=== PATIENT | male | born 1980 | race Caucasian/White ===

== ENCOUNTER 2020-11-15 11:16 | Emergency (ER) | payer OTHER, SELFPAY ==
--- NOTE | ~2020-11-15 | CT_ITS ---
EXAMINATION: CT brain wo con DATE: 11/15/2020 12:23 INDICATION: Head injury. TECHNIQUE: Computed tomography (CT) of the head was performed without intravenous contrast. The mA wa s adjusted according to patient size. Iterative reconstruction technique was employed. The dose-lengt h product was 605.33 mGy-cm. COMPARISON: None FINDINGS: There is no intracranial hemorrhage, acute infarction, or abnormal intracranial mass lesion . The ventricles are normal in size. There is mild mucosal thickening in the ethmoid sinuses. The orb its are normal. The mastoid air cells are normal. IMPRESSION: 1. Normal brain. Reviewed, dictated and finalized at location A. IMPRESSION: 1. Normal brain.
[2020-11-15 12:02] VITALS: BP 146/96; PULSE 99; RESP 18; TEMP 36.3; O2SAT 96
[2020-11-15 14:05] VITALS: BP 146/105; PULSE 101; RESP 18
--- NOTE | 2020-11-15 14:14 | PC.NURSE ---
Pt states he has been extremely dizzy and unable to walk around his house without falling into the [place]
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
[2020-11-15] MEDS: KETOROLAC 30 MG/ML VIAL (*BKC) IV PUSH (15:04)
[2020-11-15] MEDS: diphenhydrAMINE HCl INJ 50 MG/ML VIAL 25 MG IV PUSH (15:04)
[2020-11-15] MEDS: METOCLOPRAMIDE HCL INJ 10 MG/2 ML VIAL IV PUSH (15:04)
[2020-11-15] MEDS: SODIUM CHLORIDE 0.9% IV 1,000 ML 999 ML IV CONT (15:04)
[2020-11-15 15:05] VITALS: BP 121/85; PULSE 86; RESP 16; O2SAT 98
[2020-11-15 16:48] VITALS: BP 109/66; PULSE 87; RESP 16; O2SAT 98
[2020-11-15] MEDS: ONDANSETRON INJ 4 MG/2 ML VIAL IV PUSH (16:50)
[2020-11-15 18:01] VITALS: BP 102/64; PULSE 76; RESP 16; TEMP 36.7; O2SAT 96
== END 2020-11-15 18:38 | disposition home or self-care (01) ==
PROVIDERS: Emergency Provider Emergency Medicine; PCP Internal Medicine Gastroenterology
DX: S06.0X0A Concussion without loss of consciousness, initial encounter (principal); Y00.XXXA Assault by blunt object, initial encounter
CPT/HCPCS: 70450; 96365; 96366; 96375; 99284; J0131; J1100; J1200; J1885; J2405; J2765; J7030

== ENCOUNTER 2023-03-03 16:13 | Emergency (ER) | payer OTHER, SELFPAY ==
--- NOTE | ~2023-03-03 | CT_ITS ---
EXAMINATION: CT abdomen pelvis w con DATE: 03/03/2023 22:44 INDICATION: Abdominal pain and bloating, constipation for 4 days TECHNIQUE: Computed tomography (CT) of the abdomen and pelvis was performed with 100 CC Omnipaque 350 intravenous contrast. Automated exposure control and iterative reconstruction technique were employe d. Exam dose: 1203.19 mGy-cm total exam DLP. COMPARISON: 07/12/2004 CT abdomen pelvis FINDINGS: Minimal atelectasis at the base of the lingula and left dependent lower lobe. Normal heart size. No pericardial or pleural effusion. Mild medial segment left hepatic focal fatty change near the fissure for the ligamentum teres. Small focal area of diminished attenuation of the posterior upper right hepatic lobe, possibly focal fatty change or small cyst or hemangioma. The liver is otherwise unremarkable. Contracted unremarkable gallbladder. No bile duct or pancreatic duct dilatation. No pancreatic mass l esion or calcification. Normal splenic size. Small splenule. Normal morphology of the adrenal glands. Small probable right renal cysts, the largest up to approximately 5.5 mm. No left renal mass lesion. No urinary tract calculus or hydroureteronephrosis. The urinary bladder is unremarkable. Small fat-containing right inguinal hernia. Normal caliber of the abdominal aorta. No intraperitoneal or retroperitoneal or pelvic mass lesion or adenopathy or ascites. Normal appendix. No bowel obstruction, bowel wall thickening, pneumatosis or intraperitoneal free air . Moderate degenerative disc disease at L4-5 and L5-S1. Degenerative spurring of the lower thoracic spi ne. No suspicious osteolytic or osteoblastic lesions. IMPRESSION: Indeterminate approximately 1 cm hypodense lesion in the posterior upper right hepatic l obe; consider hepatic MRI for further evaluation Small right renal cysts Normal appendix Reviewed, dictated and finalized at [facility]. Reviewed, dictated and finalized at location A. IMPRESSION: Indeterminate approximately 1 cm hypodense lesion in the posterior upper right hepatic lobe; consider hepatic MRI for further evaluation Small right renal cysts Normal appendix
--- NOTE | ~2023-03-03 | XR_ITS ---
EXAMINATION: XR chest 2V Exam Date/Time: 03/03/2023 16:35 CDT HISTORY: chest pain RADIATING TO LEFT ARM Comparison: 03/07/2006. RESULT: Lines, tubes, and devices: None. Lungs and pleura: Minimal linear opacities in the left lung base. Cardiomediastinal silhouette: Stable. Other: No acute osseous or upper abdominal finding. IMPRESSION: Minimal left basilar scar/atelectasis. Reviewed, dictated and finalized at location K.
--- NOTE | 2023-03-03 16:14 | ECG_ITS ---
Measurements Intervals [place] Rate: 97 P: 31 W[place]: 156 QRS: 2 QRSD: 95 T: 8 QT: 330 QTc: 421 Interpretive Statements SINUS RHYTHM CONSIDER INFERIOR INFARCT, AGE INDETERMINATE BASELINE ARTIFACT- II, III, AVL, AVF, V3 ABNORMAL ECG NO PREVIOUS ECG AVAILABLE FOR COMPARISON Electronically Signed On 03-03-2023 17:36:15 CDT by Steven Loya D.O.
[2023-03-03 16:37] LABS: Basophils Percent Auto 0.2 % (0.2-1.2); Eosinophils Absolute Auto 0.1 K/mm3 (0-0.3); Eosinophils Percent Auto 1.3 % (0-4.4); Hematocrit 41.6 % (42.0-52.0); Hemoglobin 14.4 g/dL (14.0-18.0); Immature Granulocyte Absolute 0.05 K/mm3 (0.00-0.031); Immature Granulocyte Percent A 0.6 % (0-0.5); Lymphocytes Absolute Auto 4.16 K/mm3 (0.9-3.2); Lymphocytes Percent Auto 48.1 % (18.3-44.2); Mean Corpuscular HGB Conc 34.6 g/dl (32-36); Mean Corpuscular Volume 89.5 fl (80-100); Mean Platelet Volume 10.8 fl (7.4-10.4); Monocytes Absolute Auto 0.4 K/mm3 (0.1-0.6); Monocytes Percent Auto 4.5 % (2.6-8.5); Neutrophils Absolute Auto 3.9 K/mm3 (1.3-6.7); Neutrophils Percent Auto 45.3 % (45.5-73.1); Platelet Count Result 242 k/mm3 (150-375); Red Blood Count 4.65 M/mm3 (4.6-6.20); White Blood Count 8.6 K/mm3 (4.5-10.0)
[2023-03-03 16:43] VITALS: BP 107/86; PULSE 102; RESP 22; TEMP 36.8; O2SAT 98
[2023-03-03 16:46] LABS: Alanine Aminotransferase 34 U/L (6-50); Albumin Level 4.8 g/dL (3.5-5.1); Alkaline Phosphatase 52 U/L (38-126); Anion Gap 9 mmol/L (8-16); Aspartate Amino Transferase 48 U/L (17-59); Bilirubin,Total 0.6 mg/dL (0.2-1.3); Blood Urea Nitrogen 13 mg/dL (9-20); Calcium 9.3 mg/dL (8.4-10.2); Carbon Dioxide 28 mmol/L (22-30); Chloride 101 mmol/L (98-107); Estimated Glomerular Filt Rate > 60; Glucose 108 mg/dL (65-110); Lipase 158 U/L (23-300); Potassium 4.1 mmol/L (3.4-5.0); Sodium 138 mmol/L (137-145)
[2023-03-03 16:48] LABS: INR 0.9; Partial Thromboplastin Time 29.6 SECONDS (22.3-36.8); Prothrombin Time 12.2 Seconds (11.1-14.7)
[2023-03-03 16:58] LABS: Troponin I < 0.012 ng/mL (0.000-0.034)
[2023-03-03 21:28] VITALS: BP 136/87; PULSE 89; RESP 20; O2SAT 98
[2023-03-03 21:58] LABS: Troponin I < 0.012 ng/mL (0.000-0.034)
--- NOTE | 2023-03-03 22:12 | ED.GENADULT ---
HPI - General Adult General Chief complaint: Chest Pain Stated complaint: chest pain Time Seen by Provider: 03/03/23 21:30 Source: patient Mode of arrival: ambulatory Limitations: no limitations History of Present Illness HPI narrative: Patient is a 42 y/o male who presents to the ED with multiple complaints. Patient reports having left-sided chest pain for the last 2 days. He states he was recently diagnosed with pleurisy and this feels similar. He has not tried anything for the pain. He also reports having diffuse abdominal pain and bloating and notes he has not had a bowel movement in 4 days. He does have history of previous constipation. Denies history of bowel obstruction. He has tried several [id number] therapies without relief. Denies nausea, vomiting, shortness of breath, fevers, urinary symptoms. Patient also reports having increased stress recently. Related Data Allergies Allergy/AdvReac Type Severity Reaction Status Date / Time bee venom protein (honey bee) Allergy Unknown Unknown Verified 03/03/23 22:50 [bees] BEES Allergy Unknown Unknown Uncoded 03/03/23 22:50 Review of Systems Review of Systems: CONSTITUTIONAL: Denies fever, chills, or sweats. CARDIOVASCULAR: See HPI. RESPIRATORY: Denies dyspnea. GASTROINTESTINAL: See HPI. GENITOURINARY: Denies dysuria or hematuria. SKIN: Denies rash or itching. MUSCULOSKELETAL: Denies back pain, joint pain, or myalgia. All systems reviewed & are unremarkable except as noted in HPI and below PMFSH Past Medical History Medical History History of anxiety Social History Social History (Updated 11/15/20 @ 15:00 by Eden Diamond PA-C) Substance use: never Exam Narrative: GENERAL: Uncomfortable appearing, obese with BMI of 33.9, non-toxic, in no acute distress. HEAD: Normocephalic, atraumatic. NECK: Supple. No adenopathy, no masses. RESPIRATORY: Airway patent, respirations nonlabored. Clear to auscultation bilaterally, no rales, rhonchi, wheezing. CARDIOVASCULAR: Regular rate and rhythm without murmurs, rubs, or gallops. Radial pulses 2+ and equal bilaterally. ABDOMINAL: Abdomen protuberant, slightly distended, diffuse tenderness, no hepatosplenomegaly. Normoactive BS. MUSCULOSKELETAL: Moves all extremities. Strength/ROM intact without gross deformities. TTP over left sided anterior chest wall. SKIN: Warm, dry, normal color. No rashes. NEURO: A&O X3. Speech clear. Cranial nerves II-XII grossly intact. Steady gait. No ataxic movements. PSYCHIATRIC: Anxious, tearful. Normal interaction. Course Vital Signs Vital signs: Vital Signs Temperature 98.3 F 03/03/23 16:43 Pulse Rate 102 H 03/03/23 16:43 Respiratory Rate 22 H 03/03/23 16:43 Blood Pressure 107/86 03/03/23 16:43 Pulse Oximetry 98 03/03/23 16:43 Oxygen Delivery Room Air 03/03/23 16:43 Temperature 98.3 F 03/03/23 16:43 Pulse Rate 79 03/04/23 01:08 Respiratory Rate 20 03/04/23 01:08 Blood Pressure 103/79 03/04/23 01:08 Pulse Oximetry 95 03/04/23 01:08 Oxygen Delivery Room Air 03/03/23 16:43 Medical Decision Making MDM Narrative Medical decision making narrative: Cardiac work-up reassuring. EKG nonischemic. Troponin negative x2. CXR negative. Patient with reproducible chest wall tenderness. Low suspicion for ACS. HEART score = 1. Abdomen slightly firm and distended on exam, diffuse tenderness. Basic blood w/u otherwise unremarkable. No leukocytosis. Normal LFTs and lipase. Will obtain CT abdomen pelvis to evaluate for significant constipation vs obstruction versus infection versus ascites. CT without acute abnormality. No bowel obstruction or bowel abnormality. Discussed further management of constipation if this continues. CT did show hypodensity of the liver which will require further outpatient imaging and management. I discussed these findings with patient. Patient
[2023-03-03] MEDS: MORPHINE SULFATE (*CRX) 4 MG/ML INJ IV PUSH (22:43)
[2023-03-03] MEDS: ONDANSETRON INJ 4 MG/2 ML VIAL IV PUSH (22:43)
[2023-03-03] MEDS: SODIUM CHLORIDE 0.9% IV 1,000 ML 999 ML IV CONT (22:43)
[2023-03-03 22:50] VITALS: BP 115/88; PULSE 81; RESP 14; O2SAT 97
[2023-03-03 23:56] VITALS: BP 115/82; PULSE 80; RESP 18; O2SAT 95
[2023-03-04 01:08] VITALS: BP 103/79; PULSE 79; RESP 20; O2SAT 95
[2023-03-04] MEDS: LORazepam INJ (*CRX) 2 MG/ML VIAL 0.5 MG IV PUSH (02:18)
== END 2023-03-04 02:27 | disposition home or self-care (01) ==
PROVIDERS: Emergency Medicine; Emergency Provider Physician Assistant; PCP Internal Medicine Gastroenterology
DX: R07.89 Other chest pain (principal); K76.9 Liver disease, unspecified; R10.9 Unspecified abdominal pain; R94.31 Abnormal electrocardiogram [ECG] [EKG]; N28.1 Cyst of kidney, acquired
CPT/HCPCS: 36415; 71046; 74177; 80053; 83690; 84484; 85025; 85610; 85730; 93005; 96361; 96374; 96375; 99284; J2060; J2270; J2405; J7030; Q9967

== ENCOUNTER 2023-04-17 12:58 | Emergency (ER) | payer OTHER, SELFPAY ==
--- NOTE | ~2023-04-17 | CT_ITS ---
EXAMINATION: CT abdomen pelvis w con DATE: 04/17/2023 17:20 INDICATION: abdominal pain TECHNIQUE: Computed tomography (CT) of the abdomen and pelvis was performed with 100 mL Omnipaque-350 intravenous contrast. Automated exposure control and iterative reconstruction technique were employe d. The dose-length product was 1125.21 mGy-cm. COMPARISON: 03/03/2023. FINDINGS: Lower thorax: Lingular and bibasilar scar. Minimal dependent left lower lobe atelectasis. Liver: 1.2 cm right lobe cyst or hemangioma. Biliary/Gallbladder: Gallbladder is normal. No bile duct dilation. Pancreas: No mass or duct dilation. Spleen: Normal. Adrenals:No mass. Kidneys: Right lower pole hypodensities, too small to characterize but most likely represent cysts. N o suspicious mass, obstructing stone, or hydronephrosis. GI tract: No small or large bowel dilation. Normal appendix. Mesentery/Peritoneum: No ascites, mass, or free air. Retroperitoneum: No mass. Pelvis: Pelvic organs are within normal limits. Soft Tissues: Small, uncomplicated fat-containing right inguinal hernia. Bones: No acute osseous finding. IMPRESSION: No acute abdominopelvic process detected. Reviewed, dictated and finalized at location K.
[2023-04-17 13:21] VITALS: BP 116/81; PULSE 120; RESP 18; TEMP 36.3; O2SAT 95
[2023-04-17 14:37] LABS: Basophils Percent Auto 0.2 % (0.2-1.2); Eosinophils Absolute Auto 0.1 K/mm3 (0-0.3); Hematocrit 45.4 % (42.0-52.0); Hemoglobin 15.4 g/dL (14.0-18.0); Immature Granulocyte Absolute 0.01 K/mm3 (0.00-0.031); Immature Granulocyte Percent A 0.1 % (0-0.5); Lymphocytes Absolute Auto 3.18 K/mm3 (0.9-3.2); Lymphocytes Percent Auto 39.6 % (18.3-44.2); Mean Corpuscular HGB Conc 33.9 g/dl (32-36); Mean Corpuscular Hemoglobin 30.9 pg (26-34); Mean Platelet Volume 11.3 fl (7.4-10.4); Monocytes Absolute Auto 0.4 K/mm3 (0.1-0.6); Monocytes Percent Auto 4.7 % (2.6-8.5); Neutrophils Absolute Auto 4.4 K/mm3 (1.3-6.7); Neutrophils Percent Auto 54.4 % (45.5-73.1); Platelet Count Result 223 k/mm3 (150-375); Red Blood Count 4.99 M/mm3 (4.6-6.20); Red Cell Distribution Width 11.6 % (11.5-14.5)
[2023-04-17 14:38] LABS: Appearance Urine Clear (Clear); Bilirubin Urine Negative (Negative); Blood Urine Negative (Negative); Color Urine Yellow (Yellow); Glucose Urine UA Negative (Negative); Ketones Urine Negative (Negative); Leukocyte Esterase Ur Negative LEU/UL (Negative); Nitrate Urine Negative (Negative); Protein Urine Negative (Negative); Specific Grav Ur 1.007 (1.001-1.035); Urobilinogen Urine 0.2 mg/dL (<2.0); pH Urine 6.5 (5.0-9.0)
[2023-04-17 14:53] LABS: Alanine Aminotransferase 26 U/L (6-50); Albumin Level 4.8 g/dL (3.5-5.1); Alkaline Phosphatase 56 U/L (38-126); Anion Gap 10 mmol/L (8-16); Aspartate Amino Transferase 27 U/L (17-59); Bilirubin,Total 0.8 mg/dL (0.2-1.3); Blood Urea Nitrogen 11 mg/dL (9-20); Calcium 9.6 mg/dL (8.4-10.2); Carbon Dioxide 25 mmol/L (22-30); Chloride 105 mmol/L (98-107); Estimated CRCL calculation 100 ml/min; Estimated Glomerular Filt Rate > 60; Glucose 97 mg/dL (65-110); Potassium 4.2 mmol/L (3.4-5.0); Sodium 140 mmol/L (137-145)
[2023-04-17 15:04] LABS: Add Urine Microscopic? NO
[2023-04-17 16:00] VITALS: BP 121/91; PULSE 91; RESP 18; O2SAT 97
[2023-04-17 16:45] VITALS: PULSE 76; RESP 18; O2SAT 95
--- NOTE | 2023-04-17 16:51 | ED.GENADULT ---
HPI - General Adult General Chief complaint: Urogenital-Male Stated complaint: flank pain Time Seen by Provider: 04/17/23 15:28 History of Present Illness HPI narrative: 42-year-old male presented emergency department for evaluation abdominal pain. Patient reports he does have history of proteinuria and has had follow-up with nephrology at [place]. Patient states he has had increased abdominal pain over the last few days and has not passed a bowel movement. Related Data Allergies Allergy/AdvReac Type Severity Reaction Status Date / Time bee venom protein (honey bee) Allergy Unknown Unknown Verified 04/17/23 15:35 [bees] BEES Allergy Unknown Unknown Uncoded 04/17/23 15:35 Review of Systems Review of Systems: All systems reviewed & are unremarkable except as noted in HPI and below PMFSH Past Medical History Medical History History of anxiety Social History Social History (Updated 11/15/20 @ 15:00 by Eden Diamond PA-C) Substance use: never Exam Narrative: APPEARANCE: Well appearing, no pain, no distress, well-nourished. HEAD: normocephalic, atraumatic. EYES: PERRLA/EOMI, conjunctivae clear. NOSE: Normal no drainage EARS:TMS clear with good light reflex. THROAT: Pharynx clear, no exudate. NECK: Supple. No adenopathy, no masses. RESPIRATORY: Airway patent, respirations nonlabored. Clear to auscultation bilaterally, no rales, rhonchi, wheezing. CARDIOVASCULAR: Regular rate and rhythm without murmurs rubs or gallops. ABDOMINAL: Soft nondistended, diffuse bowel sounds MUSCULOSKELETAL: Moves all extremities. Strength/ROM intact, No edema, No calf tenderness. NEURO: Alert. Cranial nerves II through XII intact. Good gait. Good coordination SKIN: Warm, dry. Normal Color Course Course Emergency Course: 42-year-old male presented the ED for evaluation of abdominal pain. Patient is afebrile has a diagnosis is on a stable hemoglobin. Patient had normal liver enzymes with no elevation in T. bili AST ALT alk phos. UA has no evidence of proteinuria. Or evidence of underlying infection. CT was ordered to evaluate for the patient's abdominal pain and CT was negative. Patient was updated the results of his work-up and encouraged of close follow-up with his primary care physician. Vital Signs Vital signs: Vital Signs Temperature 97.3 F L 04/17/23 13:21 Pulse Rate 120 H 04/17/23 13:21 Respiratory Rate 18 04/17/23 13:21 Blood Pressure 116/81 04/17/23 13:21 Pulse Oximetry 95 04/17/23 13:21 Oxygen Delivery Room Air 04/17/23 13:21 Temperature 97.3 F L 04/17/23 13:21 Pulse Rate 90 04/17/23 17:59 Respiratory Rate 20 04/17/23 17:59 Blood Pressure 131/108 H 04/17/23 17:59 Pulse Oximetry 97 04/17/23 17:59 Oxygen Delivery Room Air 04/17/23 13:21 Medical Decision Making Differential Diagnosis Differential Diagnosis: Cholecystitis, colitis, constipation, enterocolitis, diverticulitis, UTI Vital Signs Vital Signs: Vital Signs Temperature 97.3 F L 04/17/23 13:21 Pulse Rate 120 H 04/17/23 13:21 Respiratory Rate 18 04/17/23 13:21 Blood Pressure 116/81 04/17/23 13:21 Pulse Oximetry 95 04/17/23 13:21 Oxygen Delivery Room Air 04/17/23 13:21 Temperature 97.3 F L 04/17/23 13:21 Pulse Rate 90 04/17/23 17:59 Respiratory Rate 20 04/17/23 17:59 Blood Pressure 131/108 H 04/17/23 17:59 Pulse Oximetry 97 04/17/23 17:59 Oxygen Delivery Room Air 04/17/23 13:21 Lab Data Lab results reviewed: Yes I reviewed the patient's lab results. 04/17/23 14:28 04/17/23 14:28 Labs: Lab Results 04/17/23 Range/Units 14:28 WBC 8.0 (4.5-10.0) K/mm3 RBC 4.99 (4.6-6.20) M/mm3 Hgb 15.4 (14.0-18.0) g/dL Hct 45.4 (42.0-52.0) % MCV 91.0 (80-100) fl MCH 30.9 (26-34) pg MCHC 33.9 (32-36) g/dl RDW 11.6 (11.5-14.5) % Plt Count 223 (150-375)
[2023-04-17] MEDS: SODIUM CHLORIDE 0.9% IV 1,000 ML 999 ML IV CONT (16:59)
[2023-04-17] MEDS: fentaNYL CITRATE INJ (*CRX) 100 MCG/2 ML VIAL 50 MCG IV PUSH (17:38)
[2023-04-17 17:42] VITALS: BP 91/69; PULSE 85; RESP 13; O2SAT 97
[2023-04-17 17:59] VITALS: BP 131/108; PULSE 90; RESP 20; O2SAT 97
== END 2023-04-17 18:32 | disposition home or self-care (01) ==
PROVIDERS: Emergency Provider Emergency Medicine; PCP Family Medicine
DX: R10.9 Unspecified abdominal pain (principal)
CPT/HCPCS: 36415; 74177; 80053; 81003; 85025; 96361; 96374; 99284; J3010; J7030; Q9967

== ENCOUNTER 2024-06-26 06:09 | Observation (INO) | payer OTHER, SELFPAY ==
[2024-06-26] VITALS (19 sets, daily range): BP systolic 97–194; BP diastolic 55–153; PULSE 75–98; RESP 14–24; TEMP 36.1–36.5; O2SAT 94–98; BMI 33.3
--- NOTE | ~2024-06-26 | CT_ITS ---
EXAMINATION: CT abdomen pelvis w con DATE: 06/26/2024 10:05 INDICATION: Right upper quadrant abdominal pain TECHNIQUE: Computed tomography (CT) of the abdomen and pelvis was performed with 100 mL Omnipaque-350 intravenous contrast. Automated exposure control and iterative reconstruction technique were employe d. The dose-length product was 1213.17 mGy-cm. COMPARISON: 04/17/2023 and 03/03/2023 FINDINGS: Stable appearance of chronic atelectasis/scarring at the lingula and bilateral lower lobes. Heart siz e is normal. Small amount of atherosclerotic coronary artery calcific location. No pericardial or ple ural effusion. Focal hepatic steatosis at the ligamentum teres. No interval change in a 1.2 cm low-at tenuation lesion in the posterior right hepatic lobe most likely hepatic cyst or hemangioma. Gallblad herrera, spleen and small splenule, pancreas, bilateral adrenal glands and left kidney are normal. A few subcentimeter low-attenuation likely cysts in the right kidney which are too small to thoroughly giovana acterize. Bilateral ureters and the bladder are normal. No evident urolithiasis. There is a thin slig htly curved linear density measuring 1.6 cm in length within the cecum adjacent to the ileocecal valv e consistent with an ingested foreign body, possibly a bone. Bowels are otherwise normal including a normal retrocecal appendix. Postoperative change of prior left inguinal hernia repair. No free intrap eritoneal gas or fluid. No pathologically enlarged abdominal or pelvic lymphadenopathy. Moderate to s evere lower thoracic and lower lumbar spondylosis. IMPRESSION: 1. 1.6 cm thin curvilinear density within the cecum consistent with an ingested foreign body, possibl y a bone. No other acute intra-abdominal/pelvic process. Specifically the gallbladder and appendix ar e normal. Reviewed, dictated and finalized at location B. SCRAPER IMPRESSION: 1. 1.6 cm thin curvilinear density within the cecum consistent with an ingested foreign body, possibly a bone. No other acute intra-abdominal/pelvic process. Specifically the gallbladder and appendix are normal.
--- NOTE | ~2024-06-26 | XR_ITS ---
Supine and upright views of the abdomen Clinical history: Foreign body Findings: Bowel gas pattern is nonspecific. No evidence for obstruction or free air. No abnormal mass lesion or calcification is seen. Osseous structures are intact. Impression: No definite radiopaque foreign body seen. Reviewed, dictated and finalized at [facility]. PEDDLER Impression: No definite radiopaque foreign body seen.
[2024-06-26 06:36] LABS: Basophils Percent Auto 0.3 % (0.2-1.2); Eosinophils Absolute Auto 0.2 K/mm3 (0-0.3); Eosinophils Percent Auto 2.3 % (0-4.4); Hematocrit 42.8 % (42.0-52.0); Immature Granulocyte Absolute 0.05 K/mm3 (0.00-0.031); Immature Granulocyte Percent A 0.6 % (0-0.5); Lymphocytes Absolute Auto 2.95 K/mm3 (0.9-3.2); Lymphocytes Percent Auto 37.5 % (18.3-44.2); Mean Corpuscular Hemoglobin 31.6 pg (26-34); Mean Corpuscular Volume 90.1 fl (80-100); Mean Platelet Volume 10.2 fl (7.4-10.4); Monocytes Absolute Auto 0.4 K/mm3 (0.1-0.6); Monocytes Percent Auto 5.1 % (2.6-8.5); Neutrophils Absolute Auto 4.3 K/mm3 (1.3-6.7); Neutrophils Percent Auto 54.2 % (45.5-73.1); Platelet Count Result 253 k/mm3 (150-375); Red Blood Count 4.75 M/mm3 (4.6-6.20); Red Cell Distribution Width 11.3 % (11.5-14.5); White Blood Count 7.9 K/mm3 (4.5-10.0)
[2024-06-26 06:46] LABS: Alanine Aminotransferase 93 U/L (6-50); Albumin Level 4.8 g/dL (3.5-5.1); Alkaline Phosphatase 55 U/L (38-126); Anion Gap 8 mmol/L (4-12); Aspartate Amino Transferase 67 U/L (17-59); Bilirubin,Total 0.9 mg/dL (0.2-1.3); Blood Urea Nitrogen 15 mg/dL (9-20); Calcium 9.9 mg/dL (8.4-10.2); Carbon Dioxide 27 mmol/L (22-30); Chloride 104 mmol/L (98-107); Estimated CRCL calculation 101 ml/min; Estimated Glomerular Filt Rate > 60; Glucose 104 mg/dL (65-110); Lipase 105 U/L (23-300); Potassium 4.4 mmol/L (3.4-5.0); Sodium 139 mmol/L (137-145)
[2024-06-26 07:10] LABS: Add Urine Microscopic? NO; Appearance Urine Clear (Clear); Bilirubin Urine Negative (Negative); Blood Urine Negative (Negative); Color Urine Yellow (Yellow); Glucose Urine UA Negative (Negative); Ketones Urine Negative (Negative); Leukocyte Esterase Ur Negative LEU/UL (Negative); Nitrate Urine Negative (Negative); Protein Urine Negative (Negative); Specific Grav Ur 1.008 (1.001-1.035); Urobilinogen Urine 0.2 mg/dL (<2.0); pH Urine 5.5 (5.0-9.0)
[2024-06-26] MEDS: SODIUM CHLORIDE 0.9% IV 2,000 ML 999 ML IV CONT (07:59)
[2024-06-26] MEDS: ONDANSETRON INJ 4 MG/2 ML VIAL IV PUSH ×2 (08:00→16:13)
[2024-06-26] MEDS: KETOROLAC 15 MG/ML VIAL (*BKC) IV PUSH (08:00)
[2024-06-26 08:57] LABS: Strep Group A RT-PCR NOT DETECTED (Negative)
[2024-06-26 09:08] LABS: Influenza A QL RT-PCR Negative (Negative); Influenza B QL RT-PCR Negative (Negative); RSV RNA, RT-PCR Negative (Negative); SARS-CoV-2 RNA PCR Negative (Negative)
[2024-06-26 09:47] LABS: Monoscreen Negative (Negative); Negative Monotest Control Negative (Negative); Positive Monotest Control Positive (Positive)
--- NOTE | 2024-06-26 09:55 | PC.NURSE ---
Patient requesting pain medication at this time. provider aware and states he wants patient to get the car scan first so he knows what he is treating . patient made aware.
[2024-06-26] MEDS: polyethylene glycoL 3350 238 GM BOTTLE PO ×2 (10:00→14:24)
--- NOTE | 2024-06-26 10:57 | ED_ITS ---
HPI - General Adult General Chief complaint: Abdominal Pain Stated complaint: abd pain/fever Time Seen by Provider: 06/26/24 07:04 History of Present Illness HPI narrative: This is a 44-year-old male presenting ED with chief complaint of abdominal pain. patient says he started developing abdominal pain 4 days ago. He describes as a stabbing pain in his right flank. Pain is nonradiating 8 out 10 intensity constant and getting worse. Patient has never had pain like this before there are no exacerbating relieving factors. Patient notes subjective fever chills, nausea vomiting. He also says he is diaphoretic at night. He denies diarrhea urinary symptoms chest pain or difficulty breathing. Patient denies use drugs or alcohol. He has been treated for hepatitis-C in the past. Patient states he got it from his girlfriend at the age of 23 and denies any use of IV drugs. patient has multiple tattoos but says they were all obtained at formal tattoo parlors. Related Data Home Medications Medication Instructions Recorded Confirmed alprazolam 2 mg tablet mg 06/26/24 doxepin 75 mg capsule 75 mg PO HS 06/26/24 phentermine 37.5 mg tablet 18.75 mg PO DAILY 06/26/24 Allergies Allergy/AdvReac Type Severity Reaction Status Date / Time bee venom protein (honey bee) Allergy Unknown Unknown Verified 06/26/24 06:20 [bees] BEES Allergy Unknown Unknown Uncoded 06/26/24 06:20 [facility] Past Medical History Medical History History of anxiety Social History Social History Substance use: never Exam Narrative: APPEARANCE: No apparent distress. anxious Head: atraumatic. EYES: EOMI, NOSE: Atraumatic NECK: Trachea midline RESPIRATORY: No increased rate of breathing, CTAB CARDIOVASCULAR: RRR, ABDOMINAL: tenderness to the right-sided abdomen with voluntary guarding, rest the abdomen is soft no guarding rebound MUSCULOSKELETAl: No obvious deformities NEURO: Alert. Moving 4/4 extremities SKIN:: Warm, dry. Normal color PSYCHIATRIC: anxious Course Vital Signs Vital signs: Vital Signs Temperature 97.5 F L 06/26/24 06:16 Pulse Rate 93 06/26/24 06:16 Respiratory Rate 24 H 06/26/24 06:16 Blood Pressure 194/153 H 06/26/24 06:16 Pulse Oximetry 97 06/26/24 06:16 Oxygen Delivery Room Air 06/26/24 06:16 Temperature 97.5 F L 06/26/24 06:16 Pulse Rate 80 06/26/24 11:08 Respiratory Rate 17 06/26/24 11:08 Blood Pressure 120/87 06/26/24 11:08 Pulse Oximetry 96 06/26/24 11:08 Oxygen Delivery Room Air 06/26/24 06:16 Medical Decision Making MDM Narrative Medical decision making narrative: -Course: 44-year-old male presenting with right-sided abdominal pain. CT showed a 1.6 cm curved radiopaque body in the cecum that may or may not be a bone. This corresponds to the patient's pain on exam. General surgery was consulted. Dr. Ramsay recomended GI consult. Dr. Plaza was consulted and is coming to eval the patient. after assessing the patient he believes the pain is more likely due to constipation then the foreign body. Patient will be admitted for laxatives and repeat abdominal exams. -DDX includes but is not limited to: Liver disease, gallbladder disease, a ppendicitis, colitis, pyelonephritis, kidney stone -Co-morbidities complicating care: history of hepatitis C, anxiety, -Independent interpretation of studies: labs and imaging reviewed -Discussion of Management/Consultants: Dr. Isaak Ramsay, Dr. Plaza. -Interventions: Toradol, Dilaudid, normal saline, Zofran -Shared decision making / Disposition: admitted. Vital Signs Vital Signs: Vital Signs Temperature 97.5 F L 06/26/24 06:16 Pulse Rate 93 06/26/24 06:16 Respiratory Rate 24 H 06/26/24 06:16 Blood Pressure 194/153 H 06/26/24 06:16 Pulse Oximetry 97 06/26/24 06:16 Oxygen Delivery Room Air 06/26/24 06:16 Temperature 97.5 F L 06/26/24 06:16 Pulse Rate 80 06/26/24 11:08 Respiratory Rate 17 06/26/24 11:08 Blood Pressure 120/87 06/26/24 11:08 Pulse Oximetry 96 06/26/24 11:08 Oxygen Delivery Room Air 06/26/24 06:16 Lab Data 06/26/24 06:30 06/26/24 06:29 Labs: Lab Results 06/26/24 06/26/24 06/26/24 Range/Units 06:29 06:30 07:01 WBC 7.9 (4.5-10.0) K/mm3 RBC 4.75 (4.6-6.20) M/mm3 Hgb 15.0 (14.0-18.0) g/dL Hct 42.8 (42.0-52.0) % MCV 90.1 (80-100) fl MCH 31.6 (26-34) pg MCHC 35.0 (32-36) g/dl RDW 11.3 L (11.5-14.5) % Plt Count 253 (150-375) k/mm3 MPV 10.2 (7.4-10.4) fl Immature Gran % (Auto) 0.6 H (0-0.5) % Neut % (Auto) 54.2 (45.5-73.1) % Lymph % (Auto) 37.5 (18.3-44.2) % [place] % (Auto) 5.1 (2.6-8.5) % Eos % (Auto) 2.3 (0-4.4) % Baso % (Auto) 0.3 (0.2-1.2) % Lymph # (Auto) 2.95 (0.9-3.2) K/mm3 [place] # (Auto) 0.4 (0.1-0.6) K/mm3 Eos # (Auto) 0.2 (0-0.3) K/mm3 Baso # (Auto) 0.0 (0.0-0.1) K/mm3 Abs Immat Gran (auto) 0.05 H (0.00-0.031) K/mm3 Absolute Neuts (auto) 4.3 (1.3-6.7) K/mm3 Absolute Nucleated RBC 0.000 (0.0-0.012) K/mm3 Nucleated RBC % 0.0 (0.0-0.2) % Sodium 139 (137-145) mmol/L Potassium 4.4 (3.4-5.0) mmol/L Chloride 104 (98-107) mmol/L Carbon Dioxide 27 (22-30) mmol/L Anion Gap 8 (4-12) mmol/L BUN 15 (9-20) mg/dL Creatinine 0.90 (0.7-1.3) mg/dL Estim Creat Clear Calc 101 ml/min Estimated GFR > 60 (59 - ) Glucose 104 (65-110) mg/dL Calcium 9.9 (8.4-10.2) mg/dL Total Bilirubin 0.9 (0.2-1.3) mg/dL AST 67 H (17-59) U/L ALT 93 H (6-50) U/L Alkaline Phosphatase 55 (38-126) U/L Total Protein 8.0 (6.3-8.2) g/dL Albumin 4.8 (3.5-5.1) g/dL Lipase 105 (23-300) U/L Urine Color Yellow (Yellow) Urine Appearance Clear (Clear) Urine pH 5.5 (5.0-9.0) Ur Specific [place] 1.008 (1.001-1.035) Urine Protein Negative (Negative) mg/dL Urine Glucose (UA) Negative (Negative) mg/dL Urine Ketones Negative (Negative) mg/dL Ur Blood (Man) Negative (Negative) Urine Nitrate Negative (Negative) Urine Bilirubin Negative (Negative) Urine Urobilinogen 0.2 (<2.0) mg/dL Leukocyte Esterase Rfl Negative (Negative) OBI/UL Urine Opiates Screen Negative (Negative) Urine Methadone Screen Negative (Negative) Ur Barbiturates Screen Negative (Negative) Ur Phencyclidine Scrn Negative (Negative) Ur Amphetamine Screen Negative (Negative) U Benzodiazepines Scrn Positive A (Negative) Urine Cocaine Screen Negative (Negative) U Cannabinoids Screen Negative (Negative) Monoscreen (Negative) Influenza A (RT-PCR) (Negative) Influenza B (RT-PCR) (Negative) RSV (RT-PCR) (Negative) SARS-CoV-2 RNA (RT-PCR) (Negative) Group A Strep (PCR) (Negative) 06/26/24 06/26/24 06/26/24 Range/Units 08:07 08:09 08:25 WBC (4.5-10.0) K/mm3 RBC (4.6-6.20) M/mm3 Hgb (14.0-18.0) g/dL Hct (42.0-52.0) % MCV (80-100) fl MCH (26-34) pg MCHC (32-36) g/dl RDW (11.5-14.5) % Plt Count (150-375) k/mm3 MPV (7.4-10.4) fl Immature Gran % (Auto) (0-0.5) % Neut % (Auto) (45.5-73.1) % Lymph % (Auto) (18.3-44.2) % [place] % (Auto) (2.6-8.5) % Eos % (Auto) (0-4.4) % Baso % (Auto) (0.2-1.2) % Lymph # (Auto) (0.9-3.2) K/mm3 [place] # (Auto) (0.1-0.6) K/mm3 Eos # (Auto) (0-0.3) K/mm3 Baso # (Auto) (0.0-0.1) K/mm3 Abs Immat Gran (auto) (0.00-0.031) K/mm3 Absolute Neuts (auto) (1.3-6.7) K/mm3 Absolute Nucleated RBC (0.0-0.012) K/mm3 Nucleated RBC % (0.0-0.2) % Sodium (137-145) mmol/L Potassium (3.4-5.0) mmol/L Chloride (98-107) mmol/L Carbon Dioxide (22-30) mmol/L Anion Gap (4-12) mmol/L BUN (9-20) mg/dL Creatinine (0.7-1.3) mg/dL Estim Creat Clear Calc ml/min Estimated GFR (59 - ) Glucose (65-110) mg/dL Calcium (8.4-10.2) mg/dL Total Bilirubin (0.2-1.3) mg/dL AST (17-59) U/L ALT (6-50) U/L Alkaline Phosphatase (38-126) U/L Total Protein (6.3-8.2) g/dL Albumin (3.5-5.1) g/dL Lipase (23-300) U/L Urine Color (Yellow) Urine Appearance (Clear) Urine pH (5.0-9.0) Ur Specific [place] (1.001-1.035) Urine Protein (Negative) mg/dL Urine Glucose (UA) (Negative) mg/dL Urine Ketones (Negative) mg/dL Ur Blood (Man) (Negative) Urine Nitrate (Negative) Urine Bilirubin (Negative) Urine Urobilinogen (<2.0) mg/dL Leukocyte Esterase Rfl (Negative) OBI/UL Urine Opiates Screen (Negative) Urine Methadone Screen (Negative) Ur Barbiturates Screen (Negative) Ur Phencyclidine Scrn (Negative) Ur Amphetamine Screen (Negative) U Benzodiazepines Scrn (Negative) Urine Cocaine Screen (Negative) U Cannabinoids Screen (Negative) Monoscreen Negative (Negative) Influenza A (RT-PCR) Negative (Negative) Influenza B (RT-PCR) Negative (Negative) RSV (RT-PCR) Negative (Negative) SARS-CoV-2 RNA (RT-PCR) Negative (Negative) Group A Strep (PCR) Not detected (Negative) Critical Care Time Critical Care Time Critical Care Time: Yes Total Critical Care Time: 35 Discharge Plan Discharge Clinical Impression: Abdominal pain, Constipation Patient Disposition: Home, Self-Care Condition: Stable Instructions: Antibiotic Form Prescriptions: No Action metoclopramide HCl [Reglan] 5 mg tablet 5 mg PO DAILY PRN (Reason: nausea and vomiting) Qty: 7 0RF doxepin 75 mg Capsule 75 mg PO HS phentermine 37.5 mg Tablet 18.75 mg PO DAILY Rx Instructions: must administer 30 minutes before or 1-2 hours after breakfast alprazolam 2 mg tablet bisacodyl [Alophen (bisacodyl)] 5 mg tablet,delayed release (DR/EC) 5 mg PO BID PRN (Reason: constipation) Qty: 20 0RF polyethylene glycol 3350 [Miralax] 17 gram/dose powder 17 g PO BID PRN (Reason: constipation) Qty: 238 0RF Follow-up/Referrals: Marcos Marcum MD [Primary Care Provider] -
[2024-06-26] MEDS: HYDROmorphone HCL INJ (*CRX) 1 MG/ML SYR 0.5 MG IV PUSH ×2 (11:18→22:31)
[2024-06-26 11:42] LABS: Amphetamine Screen Urine Negative (Negative); Barbiturate Screen Urine Negative (Negative); Benzodiazepines Screen Urine Positive (Negative); Cannabinoid Screen Urine Negative (Negative); Cocaine Screen Urine Negative (Negative); Methadone Screen Urine Negative (Negative); Opiate Screen Urine Negative (Negative); Phencyclidine Screen Urine Negative (Negative)
--- NOTE | 2024-06-26 12:45 | WPDGICN ---
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 The incidental finding of a foreign body is probably not a major factor, however it should be followed with plain X rays tomorrow. Will suggest laxative administration (Miralax) today and tomorrow. No colonoscopy is needed at this moment, however will consider it if there is no improvement after relieving constipation. GI Consult Note Consult date/time: 06/26/24 12:45 HPI: Eros Hernandez is a 44 year old male with a history of hepatitis C treated and erradicated in 2017. He suffers from chronic constipation, and states that last week he has been with a flu, unable to eat or drink adequate amounts. He normally uses lactulose as a laxative. For the past 2 days, he has been complaining of moderate to severe right lower quadrant pain, almost constant, not associated with rectal bleeding, fever, urinary symptoms, nausea or vomiting. He has visited the ED several times for the same problem. Today's CT scan reading shows a 1.6 cm curvilinear foreign body in the cecal area, not associated with fat stranding or free air suggesting perforation or embedding deep in tissues. Review of Systems Review of Systems: All systems reviewed & are unremarkable except as noted in HPI and below PMFSH Past Medical History Medical History History of anxiety Social History Social History Substance use: never Meds Home Medications and Allergies Home Medications Medication Instructions Recorded Confirmed Type metoclopramide HCl 5 mg tablet 5 mg PO DAILY PRN nausea and 11/15/20 Rx (Reglan) vomiting #7 tabs bisacodyl 5 mg tablet,delayed 5 mg PO BID PRN constipation #20 03/04/23 Rx release (Alophen (bisacodyl)) tabs polyethylene glycol 3350 17 17 g PO BID PRN constipation #238 03/04/23 Rx gram/dose oral powder (Miralax) grams alprazolam 2 mg tablet mg 06/26/24 History doxepin 75 mg capsule 75 mg PO HS 06/26/24 History phentermine 37.5 mg tablet 18.75 mg PO DAILY 06/26/24 History Allergies Allergy/AdvReac Type Severity Reaction Status Date / Time bee venom protein (honey bee) Allergy Unknown Unknown Verified 06/26/24 06:20 [bees] BEES Allergy Unknown Unknown Uncoded 06/26/24 06:20 Vital Signs Vital Signs - 24 hr 06/26/24 06:16 06/26/24 06:30 06/26/24 07:00 Temperature 97.5 F L Pulse Rate 93 89 92 Respiratory Rate 24 H 15 17 Blood Pressure 194/153 H Pulse Oximetry 97 94 96 Oxygen Delivery Room Air 06/26/24 07:02 06/26/24 07:15 06/26/24 07:30 Temperature Pulse Rate 94 94 96 Respiratory Rate 20 17 19 Blood Pressure 97/65 L Pulse Oximetry 95 94 97 Oxygen Delivery 06/26/24 07:45 06/26/24 08:00 06/26/24 08:30 Temperature Pulse Rate 98 91 84 Respiratory Rate 16 19 20 Blood Pressure Pulse Oximetry 96 96 Oxygen Delivery 06/26/24 08:45 06/26/24 09:00 06/26/24 09:30 Temperature Pulse Rate 88 90 90 Respiratory Rate 16 14 20 Blood Pressure Pulse Oximetry Oxygen Delivery 06/26/24 09:41 06/26/24 09:45 06/26/24 09:46 Temperature Pulse Rate 88 83 85 Respiratory Rate 19 17 20 Blood Pressure 125/90 126/92 H Pulse Oximetry 96 97 97 Oxygen Delivery 06/26/24 11:08 Temperature Pulse Rate 80 Respiratory Rate 17 Blood Pressure 120/87 Pulse Oximetry 96 Oxygen Delivery Exam Const: General: in distress GI: GI Palp: Yes Soft to palpation Auscultation: normal bowel sounds and abnormal bowel sounds Other: tenderness to palpation diffusely, no rebound. Results Labs 06/26/24 06:30 06/26/24 06:29 Labs: Short CBC 06/26/24 Range/Units 06:30 WBC 7.9 (4.5-10.0) K/mm3 Hgb 15.0 (14.0-18.0) g/dL Hct 42.8 (42.0-52.0) % Plt Count 253 (150-375) k/mm3 BMP 06/26/24 06:29 Sodium 139 Potassium 4.4 Chloride 104 Carbon Dioxide 27 BUN 15 Creatinine 0.90 Glucose 104 Calcium 9.9 Liver Function 06/26/24 Range/Units 06:29 Total Bilirubin 0.9 (0.2-1.3) mg/dL AST 67 H (17-59) U/L ALT 93 H (6-50) U/L Alkaline Phosphatase 55 (38-126) U/L Albumin 4.8 (3.5-5.1) g/dL Urine 06/26/24 Range/Units 07:01 Urine Color Yellow (Yellow) Urine Appearance Clear (Clear) Urine pH 5.5 (5.0-9.0) Ur Specific [place] 1.008 (1.001-1.035) Urine Protein Negative (Negative) mg/dL Urine Glucose (UA) Negative (Negative) mg/dL
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
--- NOTE | 2024-06-26 15:15 | ADMGEN ---
This patient, Eros Hernandez, was admitted to 2 Medical Room 256-. Patient/family oriented to hospital policies and general routines including ID bracelet, bed and alarms, visiting hours, pain management, procedures, bathroom and other care routines, personal items, smoking policy, room service/diet, and visiting hours. Information on how to activate the Rapid Response Team has been discussed. Patient/Family are encouraged to report perceived risks to care and to ask questions if they do not understand what they are told or what they should do.
[2024-06-26] MEDS: LACTATED RINGERS 1,000 ML 125 ML IV CONT (16:14)
[2024-06-26] MEDS: HYDROcodone/acetaminophen (*CRX) 5-325 MG TABLET 1 TAB PO ×2 (16:14→20:24)
[2024-06-26] MEDS: ALPRAZolam (*CRX) 0.5 MG TABLET 2 MG PO ×2 (18:15→21:21)
[2024-06-26] MEDS: DOXEPIN HCL 25 MG CAPSULE 150 MG PO (21:21)
--- NOTE | 2024-06-27 03:31 | PC.NURSE ---
charting reviewed for Ibrahima Tovar RNLP for this shift
[2024-06-27] MEDS: HYDROmorphone HCL INJ (*CRX) 1 MG/ML SYR 0.5 MG IV PUSH (04:05)
[2024-06-27] MEDS: LACTATED RINGERS 1,000 ML 125 ML IV CONT ×2 (04:12→12:32)
[2024-06-27 05:06] VITALS: BP 113/63; PULSE 77; RESP 16; TEMP 36.2; O2SAT 96
[2024-06-27] MEDS: LEVOTHYROXINE SODIUM 25 MCG TABLET PO (05:52)
[2024-06-27 06:23] LABS: Basophils Percent Auto 0.3 % (0.2-1.2); Eosinophils Absolute Auto 0.2 K/mm3 (0-0.3); Eosinophils Percent Auto 3.1 % (0-4.4); Hematocrit 40.3 % (42.0-52.0); Hemoglobin 13.5 g/dL (14.0-18.0); Immature Granulocyte Absolute 0.03 K/mm3 (0.00-0.031); Immature Granulocyte Percent A 0.5 % (0-0.5); Lymphocytes Absolute Auto 3.24 K/mm3 (0.9-3.2); Lymphocytes Percent Auto 50.7 % (18.3-44.2); Mean Corpuscular HGB Conc 33.5 g/dl (32-36); Mean Corpuscular Hemoglobin 31.5 pg (26-34); Mean Corpuscular Volume 93.9 fl (80-100); Mean Platelet Volume 10.3 fl (7.4-10.4); Monocytes Absolute Auto 0.3 K/mm3 (0.1-0.6); Monocytes Percent Auto 5.3 % (2.6-8.5); Neutrophils Absolute Auto 2.6 K/mm3 (1.3-6.7); Neutrophils Percent Auto 40.1 % (45.5-73.1); Platelet Count Result 231 k/mm3 (150-375); Red Blood Count 4.29 M/mm3 (4.6-6.20); Red Cell Distribution Width 11.7 % (11.5-14.5); White Blood Count 6.4 K/mm3 (4.5-10.0)
[2024-06-27 06:34] LABS: Alanine Aminotransferase 69 U/L (6-50); Alkaline Phosphatase 41 U/L (38-126); Anion Gap 5 mmol/L (4-12); Aspartate Amino Transferase 45 U/L (17-59); Bilirubin,Total 0.6 mg/dL (0.2-1.3); Blood Urea Nitrogen 11 mg/dL (9-20); Calcium 8.9 mg/dL (8.4-10.2); Carbon Dioxide 30 mmol/L (22-30); Chloride 104 mmol/L (98-107); Estimated CRCL calculation 103 ml/min; Estimated Glomerular Filt Rate > 60; Glucose 125 mg/dL (65-110); Potassium 4.1 mmol/L (3.4-5.0); Sodium 139 mmol/L (137-145)
--- NOTE | 2024-06-27 07:14 | P.PNGI_ITS ---
Progress Note: A&P Assessment and Plan (1) Constipation: Code(s): K59.00 - Constipation, unspecified Status: Acute Plan the patient's abdominal pain was caused by severe constipation from not eating and drinking well a whole week due to a flu. The foreign body shown in the CT scan yesterday was incidental, and it is not showing in the KUB this am (it was radio opaque in the CT, so it would have been seen on plain films). Patient advised to eat a high fiber diet, adequate amount of liquids and he can be safely discharged, reassuring him that that foreign body is out of his intestine and will not have internal bleeding or perforation. Time Spent With Patient Time with patient: less than 15 minutes Subjective Date/time seen: 06/27/24 07:14 Interval history: the patient had many bowel movements with Miralax, feels much less abdominal pain than yesterday. No fever, chills or rectal bleeding. Objective Data Vital Signs Vital Signs: Vital Signs - 24 hr 06/26/24 07:15 06/26/24 07:30 06/26/24 07:45 Temperature Pulse Rate 94 96 98 Respiratory Rate 17 19 16 Blood Pressure Pulse Oximetry 94 97 96 Oxygen Delivery 06/26/24 08:00 06/26/24 08:30 06/26/24 08:45 Temperature Pulse Rate 91 84 88 Respiratory Rate 19 20 16 Blood Pressure Pulse Oximetry 96 Oxygen Delivery 06/26/24 09:00 06/26/24 09:30 06/26/24 09:41 Temperature Pulse Rate 90 90 88 Respiratory Rate 14 20 19 Blood Pressure 125/90 Pulse Oximetry 96 Oxygen Delivery 06/26/24 09:45 06/26/24 09:46 06/26/24 11:08 Temperature Pulse Rate 83 85 80 Respiratory Rate 17 20 17 Blood Pressure 126/92 H 120/87 Pulse Oximetry 97 97 96 Oxygen Delivery 06/26/24 15:12 06/26/24 15:20 06/26/24 20:06 Temperature 97.7 F 97.7 F 97 F L Pulse Rate 87 81 75 Respiratory Rate 16 16 18 Blood Pressure 125/91 H 113/65 115/55 L Pulse Oximetry 98 97 97 Oxygen Delivery 06/26/24 20:00 06/27/24 05:06 Temperature 97.1 F L Pulse Rate 77 Respiratory Rate 16 Blood Pressure 113/63 Pulse Oximetry 96 Oxygen Delivery Room Air Intake/Output Intake/Output: Intake & Output 06/24/24 06/25/24 06/26/24 06/27/24 23:59 23:59 23:59 23:59 Intake Total 2089 2049 Balance 2089 2049 Meds/Results Medications: Active Medications Generic Name Dose Route Start Last Admin Trade Name Freq PRN Reason Stop Dose Admin Acetaminophen 650 mg 06/26/24 14:38 Acetaminophen 325 Mg Tablet PO Q4H PRN Mild Pain (1-3) or Fever Hydrocodone Bitart/Acetaminophen 1 tab 06/26/24 14:38 06/26/24 20:24 Hydrocodone/Acetaminophen (*Crx) 5-325 Mg Tablet PO 1 tab Q4H PRN Administration Moderate Pain (4-6) Alprazolam 2 mg 06/26/24 18:00 06/26/24 21:21 Alprazolam (*Crx) 0.5 Mg Tablet PO 2 mg 0800,1200,1600,2000 SKIP Administration Doxepin HCl 150 mg 06/26/24 21:00 06/26/24 21:21 Doxepin Hcl 25 Mg Capsule PO 150 mg HS SKIP Administration Hydromorphone HCl 0.5 mg 06/26/24 18:01 06/27/24 04:05 Hydromorphone Hcl Inj (*Crx) 1 Mg/Ml Syr IV PUSH 0.5 mg Q3H PRN Administration Pain Rated 7-10 Lactated Ringer's 1,000 mls @ 125 mls/hr 06/26/24 13:50 06/27/24 04:12 Lr - Lactated Ringers Iv IV CONT 125 mls/hr .Q8H SKIP Administration Levothyroxine Sodium 25 mcg 06/27/24 06:30 06/27/24 05:52 Levothyroxine Sodium 25 Mcg Tablet PO 25 mcg DAILY@0630 SKIP Administration Ondansetron HCl 4 mg 06/26/24 14:38 06/26/24 16:13 Ondansetron Inj 4 Mg/2 Ml Vial IV PUSH 4 mg Q6H PRN Administration Nausea And Vomiting Rosuvastatin Calcium 10 mg 06/27/24 09:00 Rosuvastatin 10 Mg Tablet PO DAILY REPLACED BY [facility] Radiology Results: ITS Impressions Abdomen/Pelvis CT 06/26/24 10:11 IMPRESSION: 1. 1.6 cm thin curvilinear density within the cecum consistent with an ingested foreign body, possibly a bone. No other acute intra-abdominal/pelvic process. Specifically the gallbladder and appendix are normal. Abdomen X-Ray 06/27/24 06:20 Impression: No definite radiopaque foreign body seen. Labs Labs: Laboratory Results - last 24 hr 06/26/24 06/26/24 06/26/24 07:01 08:07 08:09 WBC RBC Hgb Hct MCV MCH MCHC RDW Plt Count MPV Immature Gran % (Auto) Neut % (Auto) Lymph % (Auto) [place] % (Auto) Eos % (Auto) Baso % (Auto) Lymph # (Auto) [place] # (Auto) Eos # (Auto) Baso # (Auto) Abs Immat Gran (auto) Absolute Neuts (auto) Absolute Nucleated RBC Nucleated RBC % Sodium Potassium Chloride Carbon Dioxide Anion Gap BUN Creatinine Estim Creat Clear Calc Estimated GFR Glucose Calcium Total Bilirubin AST ALT Alkaline Phosphatase Total Protein Albumin TSH Urine Color Yellow Urine Appearance Clear Urine pH 5.5 Ur Specific [place] 1.008 Urine Protein Negative Urine Glucose (UA) Negative Urine Ketones Negative Ur Blood (Man) Negative Urine Nitrate Negative Urine Bilirubin Negative Urine Urobilinogen 0.2 Leukocyte Esterase Rfl Negative Urine Opiates Screen Negative Urine Methadone Screen Negative Ur Barbiturates Screen Negative Ur Phencyclidine Scrn Negative Ur Amphetamine Screen Negative U Benzodiazepines Scrn Positive A Urine Cocaine Screen Negative U Cannabinoids Screen Negative Monoscreen Influenza A (RT-PCR) Negative Influenza B (RT-PCR) Negative RSV (RT-PCR) Negative SARS-CoV-2 RNA (RT-PCR) Negative Group A Strep (PCR) Not detected 06/26/24 06/27/24 08:25 06:01 WBC 6.4 RBC 4.29 L Hgb 13.5 L Hct 40.3 L MCV 93.9 MCH 31.5 MCHC 33.5 RDW 11.7 Plt Count 231 MPV 10.3 Immature Gran % (Auto) 0.5 Neut % (Auto) 40.1 L Lymph % (Auto) 50.7 H [place] % (Auto) 5.3 Eos % (Auto) 3.1 Baso % (Auto) 0.3 Lymph # (Auto) 3.24 H [place] # (Auto) 0.3 Eos # (Auto) 0.2 Baso # (Auto) 0.0 Abs Immat Gran (auto) 0.03 Absolute Neuts (auto) 2.6 Absolute Nucleated RBC 0.000 Nucleated RBC % 0.0 Sodium 139 Potassium 4.1 Chloride 104 Carbon Dioxide 30 Anion Gap 5 BUN 11 Creatinine 0.90 Estim Creat Clear Calc 103 Estimated GFR > 60 Glucose 125 H Calcium 8.9 Total Bilirubin 0.6 AST 45 ALT 69 H Alkaline Phosphatase 41 Total Protein 7.0 Albumin 4.0 TSH 5.040 H Urine Color Urine Appearance Urine pH Ur Specific [place] Urine Protein Urine Glucose (UA) Urine Ketones Ur Blood (Man) Urine Nitrate Urine Bilirubin Urine Urobilinogen Leukocyte Esterase Rfl Urine Opiates Screen Urine Methadone Screen Ur Barbiturates Screen Ur Phencyclidine Scrn Ur Amphetamine Screen U Benzodiazepines Scrn Urine Cocaine Screen U Cannabinoids Screen Monoscreen Negative Influenza A (RT-PCR) Influenza B (RT-PCR) RSV (RT-PCR) SARS-CoV-2 RNA (RT-PCR) Group A Strep (PCR)
[2024-06-27] MEDS: ALPRAZolam (*CRX) 0.5 MG TABLET 2 MG PO ×2 (08:27→12:28)
[2024-06-27] MEDS: HYDROcodone/acetaminophen (*CRX) 5-325 MG TABLET 1 TAB PO ×2 (08:27→12:27)
[2024-06-27] MEDS: ROSUVASTATIN 10 MG TABLET PO (08:27)
[2024-06-27 08:57] VITALS: O2SAT 95
[2024-06-27 14:09] VITALS: BP 130/77; PULSE 85; RESP 18; TEMP 36.4; O2SAT 96
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
== END 2024-06-27 14:45 | disposition home or self-care (01) ==
LOC: ANHED 13:45 → ANH2MED 14:36
PROVIDERS: Emergency Medicine; Nurse Practitioner Acute Care; Admitting Provider Family Medicine; Emergency Provider Emergency Medicine; PCP Emergency Medicine; Visit Provider Family Medicine
DX: R10.31 Right lower quadrant pain (principal); K59.09 Other constipation; T18.4XXA Foreign body in colon, initial encounter; W44.9XXA Unspecified foreign body entering into or through a natural orifice, initial encounter; F41.9 Anxiety disorder, unspecified; F31.9 Bipolar disorder, unspecified; E78.5 Hyperlipidemia, unspecified; E03.9 Hypothyroidism, unspecified; Z20.822 Contact with and (suspected) exposure to COVID-19; Z79.899 Other long term (current) drug therapy; Z98.890 Other specified postprocedural states; Z86.19 Personal history of other infectious and parasitic diseases
CPT/HCPCS: 36415; 74018; 74177; 80053; 80307; 81003; 83690; 84443; 85025; 86308; 87040; 87637; 87651; 96361; 96374; 96375; 99285; A9270; G0378; G0379; J1171; J1885; J2405; J7030; J7120; Q9967

== ENCOUNTER 2024-10-26 21:08 | Emergency (ER) | payer OTHER, SELFPAY ==
[2024-10-26] VITALS (16 sets, daily range): BP systolic 94–152; BP diastolic 68–87; PULSE 81–101; RESP 12–24; TEMP 36.9; O2SAT 93–97
--- NOTE | ~2024-10-26 | US_ITS ---
EXAMINATION: US scrotum doppler DATE: 10/26/2024 23:14 INDICATION: Left testicular pain. TECHNIQUE: Grayscale and Doppler ultrasound images of the testes were obtained. COMPARISON: Ultrasound 07/12/2004 FINDINGS: The right testis measures 4.9 x 2.4 x 4.5 cm. The left testis measures 4.7 x 2.3 x 4.1 cm. There is normal vascular flow to both testes. The right epididymis is normal with normal vascular dave w. The left epididymis is normal with normal vascular flow. There is no varicocele or hydrocele. IMPRESSION: 1. Normal testes. Reviewed, dictated and finalized at location A. IMPRESSION: 1. Normal testes.
--- NOTE | ~2024-10-26 | CT_ITS ---
EXAMINATION: CT abdomen pelvis w con DATE: 10/26/2024 22:51 INDICATION: Abdominal distention. Left testicular pain. TECHNIQUE: Computed tomography (CT) of the abdomen and pelvis was performed with 100 mL Omnipaque 350 intravenous contrast. Automated exposure control and iterative reconstruction technique were employe d. The dose-length product was 1123.81 mGy-cm. COMPARISON: CT abdomen and pelvis 06/26/2024, 03/03/2023 FINDINGS: The visualized portions of lung bases demonstrate mild atelectasis. No pleural effusion. Th e heart size is normal. No pericardial effusion. There is a 1.3 cm hypodense mass in right hepatic lo be, stable from 03/03/2023, likely benign. The gallbladder, spleen, pancreas, adrenal glands, and left kidney are normal. There is a 6 mm cyst in right kidney. There are changes of left inguinal hernia r epair. There is prominent fat in right inguinal canal that may be a hernia. There is an umbilical her ady containing fat. There are no dilated loops of bowel. The appendix is normal. There are no patholo gically enlarged lymph nodes. There is no free intraperitoneal fluid. There is severe thoracic and vania mbar spondylosis. There is mild chronic anterior wedging of multiple thoracic vertebral bodies. IMPRESSION: 1. Prominent fat in right inguinal canal that may be a hernia. 2. Umbilical hernia containing fat. Reviewed, dictated and finalized at location A.
--- OUTSIDE RECORDS SUMMARY | 2024-10-26 21:10 | XMS_ITS ---
Author Organization [facility] Address [address] [place] [address] Care Team Providers Care Heating Mechanic Name Role Phone Jorden Card Unavailable [phone] SOCIAL HISTORY Sex Assigned At : Social History Observation Description Sex Assigned At Male PROBLEMS Problem Type ICD Code Onset Dates Problem Status W/U Status Risk SNOMED Code Notes Problem Fatty (change of) liver, not elsewhere classified (K76.0) Active confirmed Fatty liver (224183723) Problem Proteinuria, unspecified (R80.9) Active confirmed Proteinuria (13143068) Encounters Encounter Location Date Provider Diagnosis [place] [facility] [address] [facility] [address] [place] [address] 09/03/2024 Jorden Card Chronic kidney disease, stage 3a N18.31 ; Essential (primary) hypertension I10 ; Anxiety disorder, unspecified F41.9 ; Gastro-esophageal reflux disease with esophagitis, without bleeding K21.00 ; Hypothyroidism, unspecified E03.9 ; Fatty (change of) liver, not elsewhere classified K76.0 and Proteinuria, unspecified R80.9 ASSESSMENTS Encounter Date Diagnosis Assessment Notes Treatment Notes Treatment Clinical Notes Section Notes 09/03/2024 Chronic kidney disease, stage 3a (ICD-10 - N18.31) 09/03/2024 Essential (primary) hypertension (ICD-10 - I10) 09/03/2024 Anxiety disorder, unspecified (ICD-10 - F41.9) 09/03/2024 Gastro-esophageal reflux disease with esophagitis, without bleeding (ICD-10 - K21.00) 09/03/2024 Hypothyroidism, unspecified (ICD-10 - E03.9) 09/03/2024 Fatty (change of) liver, not elsewhere classified (ICD-10 - K76.0) 09/03/2024 Proteinuria, unspecified (ICD-10 - R80.9) PLAN OF TREATMENT Next Appt Details Provider Name:Holland Madden/02/2025 02:00:00 PM, [address] [facility], [facility], [place], [address], Progress Notes * Sina HERNANDEZOB:1980 (44 yo M)Acc No.[id number]:09/03/2024 Progress Notes Patient: Eros HERNANDEZ Provider: MD ABHILASH, Meek.Mac.C.P, F.A.S.N. :1980 Age:44 Y Sex:Male Date:09/03/2024 Address:[address] [place] [address] Subjective: * Chief Complaints: * * Medical History: Objective: Assessment: * Assessment: 1. Chronic kidney disease, stage 3a - N18.31 (Primary) 2. Essential (primary) hypertension - I10 3. Anxiety disorder, unspecified - F41.9 4. Gastro-esophageal reflux disease with esophagitis, without bleeding - K21.00 5. Hypothyroidism, unspecified - E03.9 6. Fatty (change of) liver, not elsewhere classified - K76.0 7. Proteinuria, unspecified - R80.9 Plan: * Treatment: * Billing Information: * Visit Code: 29337 Office Visit, Est Pt., Level 4. * Procedure Codes: * Sign off status: Pending * Provider: MD ABHILASH, Meek.Mac.C.P, F.A.S.N. Date: 09/03/2024
--- OUTSIDE RECORDS SUMMARY | 2024-10-26 21:10 | XMS_ITS | Clinical Summary ---
Author Organization [facility] Address [address] [place] [address] Care Team Providers Care Buffing Wheel Raker Name Role Phone Marcos Marcum MD Primary Care Provider [phone] Allergies Active Allergy Reactions Criticality Noted Date Comments Venom-Honey Bee Anaphylaxis High 03/06/2018 Prochlorperazine Anaphylaxis High Pt reports this is not an allergy he reports the only thing he is allergic to is bees Medications ALPRAZolam (XANAX) 2 mg tablet 0 02/25/2018 Active doxepin (SINEquan) 100 mg capsule Take 1 capsule (100 mg total) by mouth nightly Active rosuvastatin (CRESTOR) 10 mg tablet 06/22/2023 Active ergocalciferol (VITAMIN D) 50,000 unit capsule 1 capsule (50,000 Units total) 04/18/2023 Active calcitRIOL (ROCALTROL) 0.25 mcg capsule Take 1 capsule (0.25 mcg total) by mouth every other day 04/18/2023 Active phentermine (ADIPEX-P) 37.5 mg tablet 0 10/17/2023 Active lactulose 0.67 gram/mL solution TAKE 15 TO 30 ML BY MOUTH TWICE DAILY 1892 mL 11 05/23/2024 Active Active Problems Problem Noted Date Diagnosed Date Chronic constipation 11/09/2023 Liver lesion 07/10/2023 History of hepatitis C 07/10/2023 Hepatic steatosis 07/10/2023 Hepatomegaly 07/10/2023 s/p right L4-5 and L5-S1 microdiscectomy on 201703/08/2018 Lumbar disc herniation with radiculopathy 2017 Low back pain 08/03/2016 Encounters Date Type Department Care Team Description 09/02/2024 12:00 PM BENEFITS CLERK Office Visit [facility] at [address] [place] [address] Devonte Joshua NP Liver lesion (Primary Dx); Neoplasm of uncertain behavior of liver; History of hepatitis C; Hepatic steatosis; Hepatomegaly; Chronic constipation from Last 3 Months Immunizations Immunization Administration Dates Next Due Influenza, Quadrivalent, Spl it, Preservative Free, Intramuscular 06/06/2017,06/29/2016 Surgical History Surgery Date Site/Laterality Comments HERNIA REPAIR HERNIA REPAIR Medical History Medical History Date Comments Lumbar disc herniation Family History Medical History Relation Name Comments Prostate cancer Father Breast cancer Mother No Known Problems Sister Relation Name Status Comments Father Mother Sister Social History Tobacco Use Types Packs/Day Years Used Date Smoking Tobacco: Never Smokeless Tobacco: Never Tobacco Cessation:Counseling Given: Not Answered Alcohol Use Standard Drinks/Week Comments No 0 (1 standard drink = 0.6 oz pur e alcohol) AUDIT-C Answer Date Recorded Q1: How often do you have a drink containing alcohol? Never 09/02/2024 Q2: How many drinks containi ng alcohol do you have on a typical day when you are drinking? Patient does not drink Q3: How often do you have si x or more drinks on one occasion? Never 09/02/2024 Sex and Gender Information Value Date Recorded Sex Assigned at Not on file Legal Sex Male 8:59 AM BENEFITS CLERK Gender Identity Not on file Sexual Orientation Not on file Obstetrics History Last Filed Vital Signs Vital Sign Reading Time Taken Comments Blood Pressure 110/67 09/02/2024 11:55 AM BENEFITS CLERK Pulse 96 09/02/2024 11:55 AM BENEFITS CLERK Temperature 36.8 C (98.2 F) 03/09/2018 12:43 PM CDT Respiratory Rate 18 03/09/2018 12:4 3 PM CDT Oxygen Saturation 97% 09/02/2024 11: 55 AM BENEFITS CLERK Inhaled Oxygen Concentration - - Weight 96.5 kg (212 lb 11.2 oz) 025 11:55 AM BENEFITS CLERK Height 167.6 cm (5' 6 ) 09/02/2024 11:5 5 AM BENEFITS CLERK Body Mass Index 34.33 09/02/2024 11:55 AM BENEFITS CLERK Plan of Treatment Health Maintenance Due Date Last Done Comments Depression Screening 1981 Prostate Cancer Screening-PSA 1981 DTaP/Tdap/Td Vaccine (1 - Tdap) 1992 Varicella Vaccines (1 of 2 - 13+ 2-dose series) 1994 Hepatitis B Screening 1999 Regular Well Visit/Exam 18-64 1999 Pneumococcal vaccine <65 (1 of 2 - PCV) 2000 Influenza Vaccine (#1) 2024 06/06/2017, 2015 Hepatitis C Screening Completed 09/02/2024 , 06/04/2024, 06/04/2024, Additional history exists HPV Vaccines Aged Out No longer eligi ble based on patient's age to complete this topic Procedures Procedure Name Priority Date/Time Associated Diagnosis Comments HEPATITIS C RNA, QUANTITATIVE, PCR Routine 06/04/2024 11:09 AM CDT Hepatitis C virus infection, unspecified chronicity from Last 3 Months or Most Recently Relevant to Health Maintenance Results * Hepatitis C (HCV) RNA PCR, quantitative Blood (06/04/2024 11:09 AM CDT) Pathologist [facility] HCV RNA result Not Detected [facility] Comment: The quantifiable range of this assay is 15 IU/mL to 100,000,000 IU/mL (1.18 log IU/mL to 8.00 log IU/mL). Testing was performed by the [employer] 6800 HCV Test ([employer] Testing performed at [facility] Current Interpretive Data was last revised on 2021 Testing performed by: [facility], [address] [facility], [place]., [address] Blood 06/04/2024 11:0 9 AM CDT 06/05/2024 11:14 AM CDT Rubi Beckett NP LAB MICROBIOLOGY - [facility] ORDERABLES [place] [address] [address] [address] [facility] from Last 3 Months or Most Recently Relevant to Health Maintenance Insurance MANAGED MEDICAID GENERIC RISK OTHER [facility] Advance Directives For more information, please contact: [phone] * Full Code (Latest Code Status on File) Date Activated Date Inactivated Comments 03/06/2018 9:34 PM 03/09/2018 9:00 PM Care Teams Buffing Wheel Raker Relationship Specialty Start Date End Date Marcos [place] [address] PCP - General Family Medicine 11/09/23
--- OUTSIDE RECORDS SUMMARY | 2024-10-26 21:10 | XMS_ITS | Patient Health Record ---
Author Organization [facility] Address [address] [place] [address] Care Team Providers Care Oiler And Greaser Name Role Phone Kyaw Jorden Unavailable [phone] REASON FOR REFERRAL No Information MEDICATIONS Medication SIG (Take, Route, Frequency, Duration) Notes Start Date End Date Status Ergocalciferol 1.25 MG (01383 UT) 1 capsule Orally Once a week for 90 day(s) 02/13/2024 05/31/2025 Active Calcitriol 0.25 MCG TAKE ONE CAPSULE BY MOUTH EVERY OTHER DAY for 120 Active SOCIAL HISTORY Sex Assigned At : Social History Observation Description Sex Assigned At Male PROBLEMS Problem Type ICD Code Onset Dates Problem Status W/U Status Risk SNOMED Code Notes Problem Hypothyroidism, unspecified (E03.9) Active confirmed Hypothyroidism (07576446) Problem Anxiety disorder, unspecified (F41.9) Active confirmed Anxiety disorde r (545498721) Problem Essential (primary) hypertension (I10) Active confirmed Essential hypertension (41068790) Problem Fatty (change of) liver, not elsewhere classified (K76.0) Active confirmed Fatty liver (392814890) Problem Proteinuria, unspecified (R80.9) Active confirmed Proteinuria (02430113) Problem Gastro-esophage al reflux disease with esophagitis, without bleeding (K21.00) Active confirmed Gastroesophagea l reflux disease with esophagitis (disorder) (597124099) Problem Chronic kidney disease, stage 3a (N18.31) Active confirmed Chronic kidney disease stage 3A (disorder) (435369725) Encounters Encounter Location Date Provider Diagnosis [place] [facility] [address] [facility] [address] [place] [address] 02/13/2024 Jorden Card Chronic kidney disease, stage 3a N18.31 ; Essential (primary) hypertension I10 ; Anxiety disorder, unspecified F41.9 ; Gastro-esophageal reflux disease with esophagitis, without bleeding K21.00 and Hypothyroidism, unspecified E03.9 [facility] [address] [address] 06/11/2024 Jorden Card [place] [facility] [address] [place] [address] 07/23/2024 Jorden Card [place] [facility] [address] [address] 08/13/2024 Jorden Card [place] [facility] [address] [place] [address] 09/03/2024 Jorden Card Chronic kidney disease, stage 3a N18.31 ; Essential (primary) hypertension I10 ; Anxiety disorder, unspecified F41.9 ; Gastro-esophageal reflux disease with esophagitis, without bleeding K21.00 ; Hypothyroidism, unspecified E03.9 ; Fatty (change of) liver, not elsewhere classified K76.0 and Proteinuria, unspecified R80.9 [place] [facility] [address] [place] [address] 06/11/2024 Jorden Card [place] [facility] [address] [place] [address] 09/03/2024 Jorden Lim [address] [place] [address] 02/13/2024 Jorden Card ASSESSMENTS Encounter Date Diagnosis Assessment Notes Treatment Notes Treatment Clinical Notes Section Notes 02/13/2024 Chronic kidney disease, stage 3a (ICD-10 - N18.31) 09/03/2024 Chronic kidney disease, stage 3a (ICD-10 - N18.31) 02/13/2024 Essential (primary) hypertension (ICD-10 - I10) 09/03/2024 Essential (primary) hypertension (ICD-10 - I10) 02/13/2024 Anxiety disorder, unspecified (ICD-10 - F41.9) 09/03/2024 Anxiety disorder, unspecified (ICD-10 - F41.9) 02/13/2024 Gastro-esophageal reflux disease with esophagitis, without bleeding (ICD-10 - K21.00) 09/03/2024 Gastro-esophageal reflux disease with esophagitis, without bleeding (ICD-10 - K21.00) 02/13/2024 Hypothyroidism, unspecified (ICD-10 - E03.9) 09/03/2024 Hypothyroidism, unspecified (ICD-10 - E03.9) 09/03/2024 Fatty (change of) liver, not elsewhere classified (ICD-10 - K76.0) 09/03/2024 Proteinuria, unspecified (ICD-10 - R80.9) PLAN OF TREATMENT Next Appt Details Provider Name:Jorden Card , 12/05/2024 02:00:00 PM, [address] [facility], [facility] [address], [place], [address],
--- OUTSIDE RECORDS SUMMARY | 2024-10-26 21:10 | XMS_ITS | Clinical Summary ---
Author Organization [facility] Address [address] [place] [address] Care Team Providers Care Application Security Developer Name Role Phone Arcadio Myers Primary Care Provider [phone] Source Comments [facility],non-owned Affiliates and Associated Physician Practices is amultiple site organization consisting of ambulatory clinics and hospital sitesin [place], [place], [place] and [place]. This disclosure is being madepursuant to the Care Everywhere program and may not contain all information available regarding this patient. Last updated 18.[facility] Allergies Active Allergy Reactions Criticality Noted Date Comments Bee Venom Anaphylaxis High 10/25/2018 Medications * Be aware that medications may not be up to date on this document. Alwaysverify current medications with the patient. Medication Sig Dispensed Refills Start Date End Date Status doxepin (SINEQUAN) 100 MG capsule Take 100 mg by mouth at bedtime Active ALPRAZolam (XANAX) 2 MG tablet Take 1 tablet by mouth 2 times daily 10/28/2018 Active Active Problems Problem Noted Date Diagnosed Date Opioid withdrawal 10/25/2018 Social History Tobacco Use Types Packs/Day Years Used Date Smoking Tobacco: Never Smokeless Tobacco: Never Tobacco Cessation:Counseling Given: No Alcohol Use Standard Drinks/Week Comments No 0 (1 standard drink = 0.6 oz pur e alcohol) Sex and Gender Information Value Date Recorded Sex Assigned at Not on file Gender Identity Not on file Sexual Orientation Not on file Last Filed Vital Signs Vital Sign Reading Time Taken Comments Blood Pressure 112/80 01/16/2019 3:37 PM CDT Pulse 89 01/16/2019 3:37 PM CDT Temperature 36.4 C (97.6 F) 01/16/2019 3:37 PM CDT Respiratory Rate 16 01/16/2019 3:37 PM CDT Oxygen Saturation 92% 01/16/2019 3:37 PM CDT Inhaled Oxygen Concentration - - Weight 83.9 kg (185 lb) 01/16/2019 11:00 AM CDT Height 167.6 cm (5' 6 ) 01/16/2019 11:00 AM CDT Body Mass Index 29.86 01/16/2019 11:00 AM CDT Plan of Treatment Health Maintenance Due Date Last Done Comments LIPID TESTING 1981 HIV SCREENING 1996 DTAP/TDAP/TD VACCINES (1 - Tdap) 2000 HEPATITIS B VACCINE (1 of 3 - 19+ 3-dose series) 2000 COVID-19 VACCINE ( - 2023-2 5 season) 2024 INFLUENZA VACCINE (#1) 2024 7, 06/29/2016 DEPRESSION SCREENING 08/06/2024 ZOSTER VACCINE (1 of 2) 2031 HEPATITIS C SCREENING Completed 10/13/2016 , 10/03/2016, 09/12/2016 HIB VACCINE Aged Out No longer eligi ble based on patient's age to complete this topic HPV VACCINE Aged Out No longer eligi ble based on patient's age to complete this topic MENINGOCOCCAL (Group B) VACCINE SHARED DECISION-MAKING Aged Out No longer eligible based on patient's age to complete this topic MENINGOCOCCAL GROUPS A/C/Y/W VACCINE Aged Out No longer eligible b ased on patient's age to complete this topic PNEUMOCOCCAL VACCINE Aged Out No long er eligible based on patient's age to complete this topic Advance Directives * Full Code (Latest Code Status on File) Date Activated Date Inactivated Comments 01/16/2019 11:16 AM 01/16/2019 7:02 PM * Full Code Date Activated Date Inactivated Comments 10/25/2018 1:00 PM 10/28/2018 12:21 PM Care Teams Application Security Developer Relationship Specialty Start Date End Date Sukhjnider Myers MD [address] [address] PCP - General 10/13/16
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
--- OUTSIDE RECORDS SUMMARY | 2024-10-26 21:10 | XMS_ITS | Encounter Summary ---
Author Organization [facility] Address [address] [place] [address] Phone Care Team Providers Care Wildlife Refuge Manager Name Role Phone Titi Doll MD Primary Care Provider [phone] Titi Doll MD Unavailable Encounter Details Date Type Department Care Team (Late st Contact Info) Description 09/12/2023 Telephone [facility] [address] [place] [address] Titi Doll MD [address] [place] [address] Social History Tobacco Use Types Packs/Day Years Used Date Smoking Tobacco: Never Smokeless Tobacco: Never Alcohol Use Standard Drinks/Week Comments Not Currently 0 (1 standard drink = 0.6 oz pur e alcohol) Education Answer Date Recorded What is the highest level of school you have completed or the highest degree you have received? 10th grade 04/19/2023 Sexually Active Control Partners Comments Not Currently Sex and Gender Information Value Date Recorded Sex Assigned at Not on file Legal Sex Male 3:16 PM MANAGER UI Gender Identity Not on file Sexual Orientation Not on file documented as of this encounter Plan of Treatment Not on file documented as of this encounter Visit Diagnoses Not on filedocumented in this encounter Care Teams Wildlife Refuge Manager Relationship Specialty Start Date End Date Titi Doll MD [address] [place], [place] [id number] PCP - General Family Medicine 03/09/23 Titi Doll MD [address] [place] [address] Family Medicine 03/09/23 documented as of this encounter
--- OUTSIDE RECORDS SUMMARY | 2024-10-26 21:10 | XMS_ITS | CONTINUITY OF CARE DOCUMENT ---
Author Name braden feliciano Address Unknown Organization [facility] Address [address] [place] [address] Phone [phone] Care Team Providers Care International Logistics Manager Name Role Phone Brionna Card MD Unavailable [phone] NELY LOERA MD Unavailable [phone] NELY LOERA MD Unavailable PROBLEMS Condition Status Date Provider Notes Anxiety disorder active PATTI BEE MD Chronic hepatitis C without mention of hepatic coma active PATTI BEE MD Bipolar affective disorder active JUSTIN MARMOLEJO MD Back pain, lower active PATTI BEE MD Family history of hypertension active PATTI BEE MD Nicotine abuse/ dependence active JUSTIN MARMOLEJO MD ENCOUNTERS Date Type Provider Location Encounter Diag nosis - In-person encounter Office Visit PATTI BEE MD [facility] - In-person encounter Office Visit PATTI BEE MD [facility]-person encounter Office Visit PATTI BEE MD [facility] - In-person encounter Office Visit PATTI BEE MD [facility] - In-person encounter Office Visit PATTI BEE MD [facility] - In-person encounter Office Visit PATTI BEE MD [facility] - In-person encounter Office Visit PATTI BEE MD [facility] - In-person encounter Office Visit PATTI BEE MD [facility] - In-person encounter Office Visit PATTI BEE MD [facility] - In[facility]person encounter Office Visit PATTI BEE MD [facility] - In-person encounter Office Visit PATTI BEE MD [facility] - In-person encounter Office Visit PATTI BEE MD [facility] - In-person encounter Office Visit PATTI BEE MD [facility] - In-person encounter Office Visit PATTI BEE MD [facility] - In-person encounter Office Visit PATTI BEE MD [facility] - In-person encounter Office Visit PATTI BEE MD [facility] - In-person encounter Office Visit PATTI BEE MD [facility] - In-person encounter Office Visit PATTI BEE MD [facility] - In-person encounter Office Visit PATTI BEE MD [facility] - In-person encounter Office Visit PATTI BEE MD [facility] - In-person encounter Office Visit PATTI BEE MD [facility] - In-person encounter Office Visit PATTI BEE MD [facility] Back pain, lowerFamily history of hypertensionNicotine abuse/ dependence ALLERGIES No Known Drug Allergies RESULTS Date Observation Value Provider Reference Range Interpretation Location 0 thyroid stimulating hormone, serum 2.660 ??IU/ML [facility] 0.270 - 4.200 0 very low density lipoproteins 58.2 mg/dL [facility] 5.0 - 40.0 High 0 LDL/HDL (low-density lipoprotein/high-den sity lipoprotein) ratio 1.8 RATIO [facility] - 0 lipoprotein, beta, serum, point, quantitative, calculated 71.8 (?) [facility] 0.0 - 100.0 0 HDL cholesterol, serum 39.0 mg/dL [facility] 35.0 - 55.0 0 cholesterol, serum 169.0 mg/dL [facility] 0.0 - 200.0 0 triglyceride, serum, fasting 291.0 mg/dL [facility] 0.0 - 150.0 High 0 anion gap, serum 12.1 [facility] - 0 albumin/globulin ratio, serum 1.7 g/dL [facility] 1.1 - 2.5 0 globulin, serum 2.8 [facility] 2.3 - 3.8 0 urea nitrogen/creatinine ratio, serum 15.0 [facility] - 0 Estimated Glomerular Filtration Rate (calc) 90.4 (?) [facility] 59.0 - 0 chloride, serum 99.9 mmol/L [facility] 98.0 - 107.0 0 potassium, serum 4.0 mmol/L [facility] 3.5 - 5.1 0 sodium, serum 140.0 mmol/L [facility] 136.0 - 145.0 0 creatinine, serum 1.0 mg/dL [facility] 0.7 - 1.2 0 carbon dioxide, venous blood 28.0 mmol/L [facility] 22.0 - 29.0 0 albumin, serum 4.7 g/dL [facility] 3.5 - 5.2 0 calcium, serum 9.7 mg/dL [facility] 8.6 - 10.2 0 aspartate aminotransferase (SGOT), serum 58.0 1/L [facility] 0.0 - 40.0 High 0 alkaline phosphatase, serum 78.0 1/L [facility] 40.0 - 130.0 0 alanine aminotransferase (SGPT), serum 79.0 1/L [facility] 0.0 - 41.0 High 0 protein, total, serum 7.5 g/dL [facility] 6.6 - 8.7 0 bilirubin, serum, total 1.1 mg/dL [facility] 0.0 - 1.2 0 urea nitrogen, blood 15.0 mg/dL [facility] 6.0 - 20.0 0 blood glucose, random 88.0 mg/dL [facility] 74.0 - 99.0 0 red blood cell distribution width, size density 40.7 fL [facility] - 0 immature granulocytes, percentage of total cells, blood 0.3 % [facility] - 0 nucleated red blood cells as percent of blood leukocytes 0.0 % [facility] - 0 red blood cell (erythrocyte) count, per high power field 0.0 10*3/UL [facility] - 0 eosinophils as percent of blood leukocytes 1.8 % [facility] - 0 neutrophils as percent of blood leukocytes 45.0 % [facility] - 0 Absolute Neutrophils 2.8 CELLS/UL [facility] 1.5 - 7.8 0 basophils as percent of blood leukocytes 0.3 % [facility] - 0 Absolute Basophils 0.0 CELLS/UL [facility] 0.0 - 0.2 0 monocytes as percent of blood leukocytes 4.8 % [facility] - 0 Absolute Monocytes 0.3 CELLS/UL [facility] 0.2 - 1.0 0 lymphocytes as percent of blood leukocytes 47.8 % [facility] - 0 Absolute Lymphocytes 3.0 CELLS/UL [facility] 0.9 - 3.9 0 mean platelet volume 11.5 (?) [facility] - 0 platelet count 239.0 THOUSAND/ UL [facility] 100.0 - 400.0 0 mean corpuscular hemoglobin concentration, RBC 33.9 G/DL [facility] 31.0 - 38.0 0 mean corpuscular hemoglobin, RBC 30.8 pg [facility] 25.0 - 35.0 0 mean corpuscular volume, RBC 91.1 fL [facility] 75.0 - 100.0 0 hematocrit, blood 44.0 % [facility] 35.0 - 55.0 0 hemoglobin, blood 14.9 g/dL [facility] 11.5 - 16.5 0 erythrocyte count, whole blood 4.8 MILLION/U L [facility] 3.5 - 5.5 0 hemoglobin A1C, blood, as % of total hemoglobin 4.9 % [facility] 4.0 - 5.6 HISTORY OF MEDICATION USE Medication Status Instructions Dates Provider Indications Com ments TRAMADOL HCL 50 MG ORAL TABLET completed ONE TABLET TWICE DAILY 2 - 9 PATTI BEE MD Back pain, lower ALPRAZOLAM 2 MG ORAL TABLET active ONE TABLET DAILY 9 PATTI BEE MD Anxiety disorder DOXEPIN HCL 100 MG ORAL CAPSULE active ONE TABLET IN THE EVENING FOR SLEEP 9 PATTI BEE MD INSURANCE PROVIDERS Payer name Policy type / Coverage type [place] [employer] [place] MEDICAID (2) Medicaid [id number] TREATMENT PLAN Date Name HEPATITIS PANEL HEPATIC FUNCTION FISHER EL HEMOGLOBIN A1c TSH, 3RD GENERATION W/REFLEX TO FT4 LIPID PANEL COMPREHENSIVE METABO LIC PANEL W/EGFR CBC (INCLUDES DIFF/P LT)
--- OUTSIDE RECORDS SUMMARY | 2024-10-26 21:10 | XMS_ITS ---
Author Organization [facility] Address [id number] [place] [address] Care Team Providers Care Green Promotions Specialist Name Role Phone Jorden Card Unavailable [phone] MEDICATIONS Medication SIG (Take, Route, Frequency, Duration) Notes Start Date End Date Status Ergocalciferol 1.25 MG (81468 UT) 1 capsule Orally Once a week for 90 day(s) 02/13/2024 05/31/2025 Active Calcitriol 0.25 MCG 1 capsule Orally Onc e a day for 90 day(s) 09/03/2024 05/31/2025 Active SOCIAL HISTORY Sex Assigned At : Social History Observation Description Sex Assigned At Male Encounters Encounter Location Date Provider Diagnosis [facility] [address] [facility] [address] [place] [address] 09/03/2024 Jorden Card PLAN OF TREATMENT Medication Medication Name Sig Start Date Stop Date Notes Ergocalciferol 1.25 MG (5000 0 UT) 1 capsule Orally Once a week for 90 day(s) 02/13/2024 05/31/2025 Calcitriol 0.25 MCG 1 capsule Orally Onc e a day for 90 day(s) 09/03/2024 05/31/2025 Next Appt Details Provider Name:Jorden Card , 12/05/2024 02:00:00 PM, [address] [facility], [facility] [address], [place], [address], Progress Notes * Sina ROBERTOOB:1980 (44 yo M)Acc No.[id number]:09/03/2024 Patient: Eros ROBERTO :1980 Age:44 Y Sex:Male Address:[address] [place] [address] * Refills Refill Ergocalciferol Capsule, 1.25 MG (47826 UT), Orally, 13, 1 capsule, Once a week, 90 day(s), Refills=2 Start Calcitriol Capsule, 0.25 MCG, Orally, 90 Capsule, 1 capsule, Once a day, 90 day(s), Refills=2 * * Date:
--- OUTSIDE RECORDS SUMMARY | 2024-10-26 21:10 | XMS_ITS ---
Author Organization [facility] Address [address] [place] [address] Care Team Providers Care Reclamation Worker Name Role Phone Kyaw Jorden Unavailable [phone] SOCIAL HISTORY Sex Assigned At : Social History Observation Description Sex Assigned At Male Encounters Encounter Location Date Provider Diagnosis [place] [facility] [address] [facility] [address] [place] [address] 08/13/2024 Jorden Card PLAN OF TREATMENT Next Appt Details Provider Name:Jorden Card , 12/05/2024 02:00:00 PM, [address] [facility] [address], [place], [address], Progress Notes * Sina ROBERTOOB:1980 (44 yo M)Acc No.[id number]:08/13/2024 Progress Notes Patient: Eros ROBERTO Provider: MD ABHILASH, Meek.Mac.C.P, F.A.S.N. :1980 Age:44 Y Sex:Male Date:08/13/2024 Address:[address] [place] [address] Subjective: * Chief Complaints: * * Medical History: Objective: Assessment: Plan: * Treatment: * Billing Information: * Visit Code: * Procedure Codes: * Sign off status: Pending * Provider: MD ABHILASH, Meek.Mac.C.P, F.A.S.N. Date: 08/13/2024
--- OUTSIDE RECORDS SUMMARY | 2024-10-26 21:10 | XMS_ITS | Clinical Summary ---
Author Organization [facility] Address [address] [place] [address] Phone Care Team Providers Care Frame Bender Name Role Phone Titi Doll MD Primary Care Provider [phone] Titi Doll MD Unavailable Allergies Active Allergy Reactions Criticality Noted Date Comments Bee Venom Anaphylaxis High 03/06/2018 Bee Venom Swelling 03/09/2023 Medications doxepin (SINEQUAN) 100 MG Capsule Take 75 mg by mouth 2 times daily. 6 Active ALPRAZolam 2 MG Tablet Take 1 Tablet by mouth 4 times daily. 8am, 12pm, 4pm, 8pm 6 Active lactulose (CHRONULAC) 10 GM/15ML SolutionIndications :Constipation, unspecified constipation type Take 30 mL by mouth 2 times daily. 237 mL 3 3 Active calcitRIOL (ROCALTROL) 0.25 MCG Capsule Take 0.25 mcg by mouth every other day. Active VITAMIN D PO Take 5,000 Units by mouth daily. Active rosuvastatin (CRESTOR) 10 MG TabletIndications:M ixed hyperlipidemia Take 1 Tablet by mouth daily. 90 Tablet 3 4 Active Active Problems Problem Noted Date Diagnosed Date Opioid withdrawal 10/25/2018 S/P lumbar microdiscectomy 03/08/2018 Lumbar disc herniation with radiculopathy 2017 Bipolar affective disorder 08/03/2016 Anxiety disorder 08/03/2016 Chronic hepatitis C virus infection 08/03/2016 Family history of hypertension 08/03/2016 Nicotine dependence 08/03/2016 Immunizations Immunization Administration Dates Next Due Hepatitis A And Hepatitis B Vaccine 02/13/2017,0 08/28/2016,07/26/2016 Influenza Vaccine, Quadrivalent, PF 06/06/2017,1 08/29/2015 TDAP Vaccine 04/05/2016 Family History Medical History Relation Name Comments Diabetes Father on Insulin Heart Surgery Father open heart Hypertension Father Neuropathy Father No Known Problems Mother Relation Name Status Comments Father Alive Mother Alive Social History Tobacco Use Types Packs/Day Years Used Date Smoking Tobacco: Never Smokeless Tobacco: Never Tobacco Cessation:Counseling Given: Yes Alcohol Use Standard Drinks/Week Comments Not Currently [...] on file Legal Sex Male 3:16 PM SYSTEM CONFIGURATION SPECIALIST Gender Identity Not on file Sexual Orientation Not on file Last Filed Vital Signs Vital Sign Reading Time Taken Comments Blood Pressure 102/88 06/22/2023 9:10 AM SYSTEM CONFIGURATION SPECIALIST Pulse 105 06/22/2023 9:10 AM SYSTEM CONFIGURATION SPECIALIST Temperature 36.4 C (97.6 F) 06/22/2023 9:10 AM SYSTEM CONFIGURATION SPECIALIST Respiratory Rate 16 06/22/2023 9:10 AM SYSTEM CONFIGURATION SPECIALIST Oxygen Saturation 96% 06/22/2023 9:10 AM SYSTEM CONFIGURATION SPECIALIST Inhaled Oxygen Concentration - - Weight 93 kg (205 lb) 06/22/2023 9:10 AM SYSTEM CONFIGURATION SPECIALIST Height 167.6 cm (5' 6 ) 06/22/2023 9:10 AM SYSTEM CONFIGURATION SPECIALIST Body Mass Index 33.09 06/22/2023 9:10 AM SYSTEM CONFIGURATION SPECIALIST Plan of Treatment Health Maintenance Due Date Last Done Comments Pneumococcal Immunization Combined (1 of 2 - PCV) 2000 Td Immunization Every 10 Years (Adults With 1 Tdap) 04/05/2026 04/05/2016 Respiratory Syncytial Virus (RSV) Immunization (Adult) (1 - 1-dose 75+ series) 2056 DTaP/Tdap/Td Immunization Discontinued 04/05/2016 Hepatitis B Immunization Completed 017, 08/28/2016, 07/26/2016 Influenza Immunization Discontinued 7, 06/29/2016 Meningococcal Immunization (ACWY) Aged Out No longer eligible based on patient's age to complete this topic Rotavirus Immunization Aged Out No lo nger eligible based on patient's age to complete this topic SARS-COV-2 Immunization Discontinued Insurance MEDICAID [employer] Care Teams Frame Bender Relationship Specialty Start Date End Date Titi Doll MD [address] [place] [address] PCP - General Family Medicine 03/09/23 Titi Doll MD [address] [place] [address] Family Medicine 03/09/23
--- OUTSIDE RECORDS SUMMARY | 2024-10-26 21:10 | XMS_ITS | Continuity of Care Document ---
Author Organization [facility] Address [address] [place] [address] [place] [address] Phone Care Team Providers Care Client Evaluator Name Role Phone Marcos Marcum MD Unavailable Unavailable Allergies, Adverse Reactions, Alerts Substance Reaction Status Criticality BEE STING KIT Swelling at injection site Active No Information Medications Medication Instructions Dosage Effective Dates (start - stop) Status Comments Adipex-P 37.5 mg tablet take 1 tablet by oral route every day before breakfast 37.5 MG - Active please dispense around 04/25/2024 triamcinolone acetonide 0.1 % topical ointment apply by topical route 2 times every day a thin layer to the affected area(s) 0.00 - Active Xanax 2 mg tablet take 1 tablet by oral route 4 times every day 2 MG - Active Synthroid 25 mcg tablet take 1 tablet by oral route every day 25 MCG - Active rosuvastatin 10 mg tablet take 1 tablet by oral route every day 10 MG - Active doxepin 75 mg capsule take 1 capsule by oral route every day at bedtime 75 MG - Active Procedures Procedure Date OFFICE/OUTPATIENT VISIT, EST OFFICE/OUTPATIENT VISIT, EST OFFICE/OUTPATIENT VISIT, EST OFFICE/OUTPATIENT VISIT, EST OFFICE/OUTPATIENT VISIT, EST OFFICE/OUTPATIENT VISIT, EST OFFICE/OUTPATIENT VISIT, EST PREV VISIT, EST, AGE 40-64 OFFICE/OUTPATIENT VISIT, NEW Advance Directives Directive Yes / No Effective Date File Name No Information Encounters Encounter Description Practice Location Reason(s) For Visit Diagnoses Date Provider Providers Copied on Encounter OFFICE/OUTPA TIENT VISIT, [facility], [address], [place], [place], [id number], [place] tel:[phone] [facility] weight gain1 (chief complaint) thyroid1 (chief complaint) HLP (chief complaint) abd pain1 (chief complaint) Abnormal weight gainHashimoto's thyroiditisMixed hyperlipidemiaGener alized abdominal pain 4 Jossue Rodríguez. [address], [place], [place], [address] , [place]. tel:[phone] OFFICE/OUTPA TIENT VISIT, [facility], [address] [place], [place], [address], [place] tel:[phone] finger1 (chief complaint) Hep C (chief complaint) abd pain1 (chief complaint) Abdominal painHepatitis CEczema 4 Jossue Rodríguez. [address], [place], [place], [address] , [place]. tel:[phone] OFFICE/OUTPA TIENT VISIT, EST [facility], [address] [place], [address], [place] tel:[phone] abd pain1 (chief complaint) Abdominal painHepatitis CGeneralized Anxiety Disorder 4 Jossue Rodríguez. [address], [place], [place], [address] , [place]. tel:[phone] OFFICE/OUTPA TIENT VISIT, [facility], [address] [place], [address], [place] tel:[phone] hashimoto1 (chief complaint) HLP (chief complaint) weight1 (chief complaint) Jose's thyroiditisMixed hyperlipidemiaAbnor mal weight gain 0 4 Jossue Rodríguez. [address], [place], [place], [address] , [place]. tel:[phone] OFFICE/OUTPA TIENT VISIT, EST [facility], [address], [place], [place], [address], [place] tel:[phone] [facility] hashimoto1 (chief complaint) HLP (chief complaint) obesity1 (chief complaint) Jose's thyroiditisFatty liverAbnormal weight gainMixed hyperlipidemia 4 Jossue Rodríguez. [address], [place], [place], [address] , [place]. tel:[phone] OFFICE/OUTPA TIENT VISIT, [facility], [address], [place], [place], [address], [place] tel:[phone] [facility] thyroid1 (chief complaint) Jose's thyroiditis 4 Jossue Rodríguez. [address], [place], [place], [address] , [place]. tel:[phone] OFFICE/OUTPA TIENT VISIT, [facility], [address], [place], [place], [address], [place] tel:[phone] [facility] weight1 (chief complaint) sick (chief complaint) weight1 (chief complaint) Jose's thyroiditisAbnormal weight lossViral infection 4 Jossue Rodríguez. [address], [place], [place], [address] , [place]. tel:[phone] PREV VISIT, EST, AGE 40-64 [facility], [address], [place], [place], [address], [place] tel:[phone] [facility] physical (chief complaint) Encounter for general adult medical examination without abnormal findings 4 Jossue Rodríguez. [address], [place], [place], [address] , [place]. tel:[phone] OFFICE/OUTPA TIENT VISIT, [facility], [address], [place], [place], [address], [place] tel:[phone] [facility] fatty liver1 (chief complaint) weight gain1 (chief complaint) HLP (chief complaint) insomnia1 (chief complaint) Fatty liverAbnormal weight gainMixed hyperlipidemiaInsom ady Jossue Rodríguez. [address], [place], [place], [address] , [place]. [phone] Family History Family Member Type Diagnosis Age At Onset Mother Problem Alive and well Brother Problem Alive and well Father Problem Alive and well Payers Payer name Insurance type Covered alliance party ID Authoriza tion(s) No Information Social History Type Description Quantity Date Captured Comments Alcohol Use Details No Caffeine Use Details Unknown Tobacco Use Status Current non-smoker Smoking Status Never smoker Sex Male Vital Signs Date / Time: Height Weight BMI Pulse Rate Blood Pressure Temperature Respiratory Rate Body Surface Area Head Circumference BMI percentile Pulse Ox Inhaled Ox 9:16 AM 66.00 in 222.60 lbs 35.9 3 kg/m eter (2) 92 /min 110/70 mm[Hg] 97.9 F 16 /min Chief Complaint And Reason For Visit From encounter dated '07/14/2024 09:12'. weight gain1 (chief complaint). Description: Pt has been gaining weight and he is on phentermine .Pt states that it gives him more energy. pt has not been diet and exercising thyroid1 (chief complaint). Description: Pt has jose. Pt denies any dysphagia or neck pain pt is on synthroid and tsh ok HLP (chief complaint). Description: Pt has HLP pt is on crestor Pt denies any myalgia abd pain1 (chief complaint). Description: Pt accidently swallowed a bone and he was seen at ER and the bone was gone on repeat x rays. He denies any recurrent abd pain Plan Of Treatment Date Type Action Status Referral Ordered: US THYROID ordered Appointment Eros Hernandez BOOKED History Of Present Illness Encounter Date Complaint History Of Prese nt Illness weight gain1 Pt has been gain ing weight and he is on phentermine .Pt states that it gives him more energy. pt has not been diet and exercising thyroid1 Pt has jose . Pt denies any dysphagia or neck pain pt is on synthroid and tsh ok HLP Pt has HLP pt is on crestor Pt denies any myalgia abd pain1 Pt accidently sw allowed a bone and he was seen at ER and the bone was gone on repeat x rays. He denies any recurrent abd pain finger1 Pt c/o right mid dle finger rash with some clear drainage. for several weeks Pt notices some small blisters which pops with clear fluid Pt has been putting OTC steroid topical but has not helped. Pt notices mld itching Hep C Pt was treated. Pt had hep C viral testing done which was negative. abd pain1 Pt states that r ight side abd pain improved. Pt had negative CT and lab and UA. Pt tested negative for Hep C viral load abd pain1 Pt c/o severe ri ght upper quadrant abd pain since 5 days Pt denies any postprandial pain Pt states that pain is constant and is sharp in nature Pt denies any nausea, vomiting, GERD Pt denies any constipation or diarrhea. Pt went to Er yesterday and hi slab showed borderline high LFT only .His urine test and CBC and CMP are otherwise normal. He also had negative abdominal and pelvic CT. he does have fatty liver and he sees liver specialist at [facility] hashimoto1 PIt has hashimot o Pt denies dysphagia or neck pain. Pt is on synthroid and his TSH is ok weight1 Pt is on phenter mine Pt finished phentermine one week ago. Pt notices more energy and more motivation to work out with phentermine. Pt has not lost much weight, however. HLP Pt has HLP Pt fausto lainez .pt denies any myalgia. his lipid is ok hashimoto1 Pt has Jose thyroid disease with low thyroid. Pt started 25 mcg of synthroid last month Pt denies any dysphagia or neck pain HLP Pt has HLP Pt fausto rees crestor Pt denies any myalgia Pt needs it refilled. obesity1 Pt is obese .Pt has been taking phentermine .He has been off phentermine for one month Pt lost some weight with phentermine Pt denies any side effects with phentermine . Pt gained some weight back since off phentermine thyroid1 Pt has jose thyroid disease Pt denies any dysphagia or neck pain Pt has difficulty losing krista. Pt feels fatigue Pt denies any edema Pt has high TPO and his repeat TSH is borderline high normal. Pt has history of low thyroid in the past and was on synthroid long time ago but he has not taken any synthroid for long time. Pt denies any dysphagia or neck pain weight1 Pt has lost more than 10 pounds with phentermine for the past 3 months. Pt denies any side effects with phentermine sick Pt c/o dry cough , subjective, fever, stomach upset, sweating myalgia for 3 days Pt denies any sore throat Pt denies any sob or headache. Pt is able to keep fluid down weight1 Pt has low thyro id Pt denies any dysphagia or neck pain Pt has elevated TPO. Lab missed TSH. pt does c/o fatigue with difficulty losing weight physical Pt needs annual physical. pt has high TG. Pt has history of right kidney cyst and he sees Dr. Card(nephrology[facility]. Pt states that he really does not like his nephrology and he thinks that he is rude. He was told that the kidney cyst is ok per nephrology. Pt has low thyroid Pt denies any dysphagia or neck pain. Pt states that he used to take synthroid long time ago which made him very tired. Pt denies any dysphagia or neck pain. Pt also has been taking phentermine since September and he has been losing weight and he feels more energy. Pt lost some weight. fatty liver1 Pt has history o f hep C s/p successful treatment back in 2015. Pt has fatty liver. Pt sees GI doctor at [facility]. Pt was told that he needs to lose weight as soon as possible. Pt does not drink alcohol. Pt initially got MRI done of abdomen due to distended abdomen which showed fatty liver. weight gain1 Pt has gained 10 0 pounds during last year. Pt states that he can not lose it. HLP Pt has HLP Pt is on statin but he does not know the name of it insomnia1 Pt has insomnia Pt takes doxepin qhs and doing ok Instructions Date Instruction Additional Infor mation No Information Assessments Type Assessment Date assessment Abnormal weight gain assessment Jose's thyroiditis 024 assessment Mixed hyperlipidemia assessment Generalized abdominal pain Mental Status Date Cognitive Assessment Orientation - [place] ed to time, place, person, situation.
--- OUTSIDE RECORDS SUMMARY | 2024-10-26 21:10 | XMS_ITS | Referral Summary ---
Author Organization [facility] Address [address] [place] [address] Care Team Providers Care Special Education Educational Assistant Name Role Phone Marcos Marcum MD Primary Care Provider Encounters Date Type Department Care Team Description 09/02/2024 12:00 PM [employer] Office Visit [facility] at [address] [place] [id number] Devonte Joshua NP Liver lesion (Primary Dx); Neoplasm of uncertain behavior of liver; History of hepatitis C; Hepatic steatosis; Hepatomegaly; Chronic constipation from Last 3 Months Allergies Active Allergy Reactions Criticality Noted Date [...] with radiculopathy 2017 Low back pain 08/03/2016 Immunizations Immunization Administration Dates Next Due Influenza, Quadrivalent, Spl it, Preservative Free, Intramuscular 06/06/2017,06/29/2016 Social History Tobacco Use Types Packs/Day Years [...] on file Legal Sex Male 8:59 AM [employer] Gender Identity Not on file Sexual Orientation Not on file Last Filed Vital Signs Vital Sign Reading Time Taken Comments Blood Pressure 110/67 09/02/2024 11:55 AM [employer] Pulse 96 09/02/2024 11:55 AM [employer] Temperature 36.8 C (98.2 F) 03/09/2018 12:43 PM CDT Respiratory Rate 18 03/09/2018 12:4 3 PM CDT Oxygen Saturation 97% 09/02/2024 11: 55 AM [employer] Inhaled Oxygen Concentration - - Weight 96.5 kg (212 lb 11.2 oz) 025 11:55 AM [employer] Height 167.6 cm (5' 6 ) 09/02/2024 11:5 5 AM [employer] Body Mass Index 34.33 09/02/2024 11:55 AM [employer] Plan of Treatment Not on file Procedures Procedure Name Priority Date/Time Associated Diagnosis Comments HEPATITIS C RNA, QUANTITATIVE, PCR Routine 06/04/2024 11:09 AM CDT Hepatitis C virus infection, unspecified chronicity from Last 3 Months or Most Recently Relevant to Health Maintenance Results * Hepatitis C (HCV) RNA PCR, quantitative Blood (06/04/2024 11:09 AM CDT) [facility] HCV RNA result Not Detected [facility] Comment: The quantifiable range of this assay is 15 IU/mL to 100,000,000 IU/mL (1.18 log IU/mL to 8.00 log IU/mL). Testing was performed by the [employer] 6800 HCV Test ([employer] Testing performed at [facility] Current Interpretive Data was last revised on 2021 Testing performed by: [facility], [address] [place] [address]., [id number] Blood 06/04/2024 11:0 9 AM CDT 06/05/2024 11:14 AM CDT Rubi Beckett NP LAB MICROBIOLOGY - GENE RAL ORDERABLES Final Result [facility] [id number] Department [place] [address] [facility] from Last 3 Months or Most Recently Relevant to Health Maintenance Insurance MANAGED MEDICAID [facility] OTHER [facility] Advance Directives For more information, please contact: [phone] * Full Code (Latest Code Status on File) Date Activated Date Inactivated Comments 03/06/2018 9:34 PM 03/09/2018 9:00 PM Care Teams Special Education Educational Assistant Relationship Specialty Start Date End Date Marcos Marcum MD [address] [place] [address] PCP - General Family Medicine 11/09/23
[2024-10-26 21:37] LABS: Basophils Percent Auto 0.4 % (0.2-1.2); Eosinophils Absolute Auto 0.3 K/mm3 (0-0.3); Eosinophils Percent Auto 3.1 % (0-4.4); Hematocrit 42.1 % (42.0-52.0); Hemoglobin 14.7 g/dL (14.0-18.0); Immature Granulocyte Absolute 0.04 K/mm3 (0.00-0.031); Immature Granulocyte Percent A 0.5 % (0-0.5); Lymphocytes Absolute Auto 4.13 K/mm3 (0.9-3.2); Lymphocytes Percent Auto 48.8 % (18.3-44.2); Mean Corpuscular HGB Conc 34.9 g/dl (32-36); Mean Corpuscular Hemoglobin 30.8 pg (26-34); Mean Corpuscular Volume 88.3 fl (80-100); Mean Platelet Volume 10.4 fl (7.4-10.4); Monocytes Absolute Auto 0.5 K/mm3 (0.1-0.6); Monocytes Percent Auto 5.6 % (2.6-8.5); Neutrophils Absolute Auto 3.5 K/mm3 (1.3-6.7); Neutrophils Percent Auto 41.6 % (45.5-73.1); Platelet Count Result 236 k/mm3 (150-375); Red Blood Count 4.77 M/mm3 (4.6-6.20); Red Cell Distribution Width 11.4 % (11.5-14.5); White Blood Count 8.5 K/mm3 (4.5-10.0)
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
[2024-10-26] MEDS: HYDROmorphone HCL INJ (*CRX) 1 MG/ML SYR IV PUSH (21:44)
[2024-10-26 21:52] LABS: Alanine Aminotransferase 31 U/L (6-50); Albumin Level 4.8 g/dL (3.5-5.1); Alkaline Phosphatase 52 U/L (38-126); Anion Gap 10 mmol/L (4-12); Aspartate Amino Transferase 29 U/L (17-59); Bilirubin,Total 0.6 mg/dL (0.2-1.3); Blood Urea Nitrogen 17 mg/dL (9-20); Calcium 9.6 mg/dL (8.4-10.2); Carbon Dioxide 27 mmol/L (22-30); Chloride 102 mmol/L (98-107); Estimated CRCL calculation 70 ml/min; Estimated Glomerular Filt Rate > 60; Glucose 100 mg/dL (65-110); Lipase 162 U/L (23-300); Potassium 4.2 mmol/L (3.4-5.0); Sodium 139 mmol/L (137-145)
[2024-10-26 21:56] LABS: Lactic Acid Reflex 1.1 mmol/L (0.7-2.0)
--- OUTSIDE RECORDS SUMMARY | 2024-10-26 22:02 | XMS_ITS | Clinical Summary ---
Author Organization [facility] [employer] Address [address] [place] [address] Care Team Providers Care Dub Room Engineer Name Role Phone Arcadio Myers Primary Care Provider [phone] Source Comments [facility] [employer],non-owned Affiliates and Associated Physician Practices is amultiple site organization consisting of ambulatory clinics and hospital sitesin [place], [place], [place] and [place]. This disclosure is being madepursuant to the Care Everywhere program and may not contain all information available regarding this patient. Last updated 18.[facility] [employer] Allergies Active Allergy Reactions Criticality Noted Date [...] 1:00 PM 10/28/2018 12:21 PM Care Teams Dub Room Engineer Relationship Specialty Start Date End Date Sukhjinder Myers MD [address] [address] PCP - General 10/13/16
--- OUTSIDE RECORDS SUMMARY | 2024-10-26 22:02 | XMS_ITS | Referral Summary ---
Author Organization [facility] Address [address] [place] [address] Care Team Providers Care Director Instrumentation Name Role Phone Marcos Marcum MD Primary Care Provider Encounters Date Type Department Care Team Description 09/02/2024 12:00 PM ALLIED HEALTH TEACHER Office Visit [facility] Gastroenterology at [address] [place] [phone] Devonte Joshua NP Liver lesion (Primary Dx); [...] on file Legal Sex Male 8:59 AM ALLIED HEALTH TEACHER Gender Identity Not on file Sexual Orientation Not on file Last Filed Vital Signs Vital Sign Reading Time Taken Comments Blood Pressure 110/67 09/02/2024 11:55 AM ALLIED HEALTH TEACHER Pulse 96 09/02/2024 11:55 AM ALLIED HEALTH TEACHER Temperature 36.8 C (98.2 F) 03/09/2018 12:43 PM CDT Respiratory Rate 18 03/09/2018 12:4 3 PM CDT Oxygen Saturation 97% 09/02/2024 11: 55 AM ALLIED HEALTH TEACHER Inhaled Oxygen Concentration - - Weight 96.5 kg (212 lb 11.2 oz) 025 11:55 AM ALLIED HEALTH TEACHER Height 167.6 cm (5' 6 ) 09/02/2024 11:5 5 AM ALLIED HEALTH TEACHER Body Mass Index 34.33 09/02/2024 11:55 AM ALLIED HEALTH TEACHER Plan of Treatment Not on file Procedures Procedure Name Priority Date/Time Associated Diagnosis Comments HEPATITIS C RNA, QUANTITATIVE, PCR Routine 06/04/2024 11:09 AM CDT Hepatitis C virus infection, unspecified chronicity from Last 3 Months or Most Recently Relevant to Health Maintenance Results * Hepatitis C (HCV) RNA PCR, quantitative Blood (06/04/2024 11:09 AM CDT) [facility] HCV RNA result Not Detected [facility] Comment: The quantifiable range of this assay is 15 IU/mL to 100,000,000 IU/mL (1.18 log IU/mL to 8.00 log IU/mL). Testing was performed by the ELO[facility] 6800 HCV Test ([employer] Testing performed at [facility] Current Interpretive Data was last revised on 2021 Testing performed by: [facility], [address] [place] [address]., [id number] Blood 06/04/2024 11:0 9 AM CDT 06/05/2024 11:14 AM CDT Rubi Beckett NP LAB MICROBIOLOGY - [facility] ORDERABLES Final Result [facility] [id number] Department [place] [address] [facility] from Last 3 Months or Most Recently Relevant to Health Maintenance Insurance MANAGED MEDICAID GENERIC [facility] OTHER [facility] Advance Directives For more information, please contact: [phone] * Full Code (Latest Code Status on File) Date Activated Date Inactivated Comments 03/06/2018 9:34 PM 03/09/2018 9:00 PM Care Teams Director Instrumentation Relationship Specialty Start Date End Date Marcos Marcum MD [address] [place] [address] PCP - General Family Medicine 11/09/23
--- OUTSIDE RECORDS SUMMARY | 2024-10-26 22:02 | XMS_ITS | Continuity of Care Document ---
Author Organization [facility] Address [address] [place] [address] [place] [address] Phone Care Team Providers Care Supply Teacher Name Role Phone Marcos Marcum MD Unavailable [...] Providers Copied on Encounter OFFICE/OUTPA TIENT VISIT, [facility], [address], [place], [place], [id number], [place] tel:[phone] [facility] weight gain1 (chief complaint) thyroid1 (chief complaint) HLP (chief complaint) abd pain1 (chief complaint) Abnormal weight gainHashimoto's thyroiditisMixed hyperlipidemiaGener alized abdominal pain [address] Rod[address], [place], [place], [address] , [place]. tel:[phone] OFFICE/OUTPA TIENT VISIT, [facility], [address] [place], [address], [place] tel:[phone] [facility] finger1 (chief complaint) Hep C (chief complaint) abd pain1 (chief complaint) Abdominal painHepatitis CEczema 4 Jossue Rodríguez. [address], [place], [place], [address] , [place]. tel:[phone] OFFICE/OUTPA TIENT VISIT, EST [facility], [address] [place], [address], [place] tel:[phone] [facility] abd pain1 (chief complaint) Abdominal painHepatitis CGeneralized Anxiety Disorder [address] Joss[address] Rod[address]uez. [address], [place], [place], [address] , [place]. tel:[phone] OFFICE/OUTPA TIENT VISIT, [facility], [address] [place] [place], [id number], [place] tel:[phone] [facility] hashimoto1 (chief complaint) HLP (chief complaint) weight1 (chief complaint) Jose's thyroiditisMixed hyperlipidemiaAbnor mal weight gain 0 4 Joss[address] Rod[address]. [address], [place], [place], [address] , [place]. tel:[phone] OFFICE/OUTPA TIENT VISIT, EST [facility], [address], [place], [place], [address], [place] tel:[phone] [facility] hashimoto1 (chief complaint) HLP (chief complaint) obesity1 (chief complaint) Jose's thyroiditisFatty liverAbnormal weight gainMixed hyperlipidemia 4 Jossue Rod[address]guez. [address], [place], [place], [address] , [place]. tel:[phone] OFFICE/OUTPA TIENT VISIT, [facility], [address], [place], [place], [address], [place] tel:[phone] [facility] thyroid1 (chief complaint) Jose's thyroiditis 4 Joss[address] Rod[address]uez. [address], [place], [place], [address] , [place]. tel:[phone] OFFICE/OUTPA TIENT VISIT, [facility], [address], [place], [place], [address], [place] tel:[phone] [facility] Medicine weight1 (chief complaint) sick (chief complaint) weight1 (chief complaint) Jose's thyroiditisAbnormal weight lossViral infection 4 Jossue Rod[address]guez. [address], [place], [place], [address] , [place]. tel:[phone] PREV VISIT, EST, AGE 40-64 [facility], [address], [place], [place], [address], [place] tel:[phone] [facility] Medicine physical (chief complaint) Encounter for general adult medical examination without abnormal findings 4 Jossue Rodríguez. [address], [place], [place], [address] , [place]. tel:[phone] OFFICE/OUTPA TIENT VISIT, [facility], [address], [place], [place], [address], [place] tel:[phone] [facility] fatty liver1 (chief complaint) weight gain1 (chief complaint) HLP (chief complaint) insomnia1 (chief complaint) Fatty liverAbnormal weight gainMixed hyperlipidemiaInsom ady Jossue Rodríguez. [address], [place], [place], [address] , [place]. [phone] Family History Family Member Type Diagnosis Age At Onset Mother Problem Alive and well Brother Problem Alive and well Father Problem Alive and well Payers Payer name Insurance type Covered constitution party ID Authoriza tion(s) No Information Social [...] liver and he sees liver specialist at [facility] hashimoto1 PIt has hashimot o Pt denies [...] cyst and he sees Dr. Card(nephrology) from [place]. Pt states that he really does not [...] fatty liver. Pt sees GI doctor at [facility]. Pt was told that he needs to [...] Mental Status Date Cognitive Assessment Orientation - Buford ed to time, place, person, situation.
--- OUTSIDE RECORDS SUMMARY | 2024-10-26 22:02 | XMS_ITS | Clinical Summary ---
Author Organization [facility] Address [address] [place] [address] Care Team Providers Care Pharmaceutical Sales Name Role Phone Marcos Marcum MD Primary Care Provider [phone] Allergies Active Allergy Reactions Criticality Noted Date [...] Department Care Team Description 09/02/2024 12:00 PM CDL COMPANY DRIVER Office Visit [facility] Gastroenterology at [address] [place] [address] Devonte Joshua NP Liver lesion [...] on file Legal Sex Male 8:59 AM CDL COMPANY DRIVER Gender Identity Not on file Sexual Orientation Not on file Obstetrics History Last Filed Vital Signs Vital Sign Reading Time Taken Comments Blood Pressure 110/67 09/02/2024 11:55 AM CDL COMPANY DRIVER Pulse 96 09/02/2024 11:55 AM CDL COMPANY DRIVER Temperature 36.8 C (98.2 F) 03/09/2018 12:43 PM CDT Respiratory Rate 18 03/09/2018 12:4 3 PM CDT Oxygen Saturation 97% 09/02/2024 11: 55 AM CDL COMPANY DRIVER Inhaled Oxygen Concentration - - Weight 96.5 kg (212 lb 11.2 oz) 025 11:55 AM CDL COMPANY DRIVER Height 167.6 cm (5' 6 ) 09/02/2024 11:5 5 AM CDL COMPANY DRIVER Body Mass Index 34.33 09/02/2024 11:55 AM CDL COMPANY DRIVER Plan of Treatment Health Maintenance Due Date [...] Blood (06/04/2024 11:09 AM CDT) Pathologist [facility] HCV RNA result Not Detected [facility] Comment: The quantifiable range of this assay is 15 IU/mL to 100,000,000 IU/mL (1.18 log IU/mL to 8.00 log IU/mL). Testing was performed by the ELO[facility] 6800 HCV Test ([employer] Testing performed at [facility] Current Interpretive Data was last revised on 2021 Testing performed by: [facility], [address], [place]., [address] Blood 06/04/2024 11:0 9 AM CDT 06/05/2024 11:14 AM CDT Rubi Beckett NP LAB MICROBIOLOGY - [facility] [place] [id number] [address] Department [place] [address] [facility] from Last 3 Months or Most Recently Relevant to Health Maintenance Insurance MANAGED MEDICAID GENERIC RISK OTHER [facility] Advance Directives For more information, please contact: [phone] * Full Code (Latest Code Status on File) Date Activated Date Inactivated Comments 03/06/2018 9:34 PM 03/09/2018 9:00 PM Care Teams Pharmaceutical Sales Relationship Specialty Start Date End Date Marcos Marcum [place] [address] PCP - General Family Medicine 11/09/23
--- OUTSIDE RECORDS SUMMARY | 2024-10-26 22:02 | XMS_ITS | Encounter Summary ---
Author Organization [facility] Address [address] [place] [address] Phone Care Team Providers Care Sheet Rock Layer Name Role Phone Titi Doll MD Primary Care Provider [phone] Titi Doll MD Unavailable Encounter Details Date Type Department Care Team (Late st Contact Info) Description 09/12/2023 Telephone [facility] Call [facility] [address] [place] [address] Titi Doll MD [address] [place] [address] Social History Tobacco Use Types Packs/Day Years [...] on file Legal Sex Male 3:16 PM PHARMACIST TECHNICIAN Gender Identity Not on file Sexual Orientation Not on file documented as of this encounter Plan of Treatment Not on file documented as of this encounter Visit Diagnoses Not on filedocumented in this encounter Care Teams Sheet Rock Layer Relationship Specialty Start Date End Date Titi Doll MD [address] [place], [place] [id number] PCP - General Family Medicine 03/09/23 Titi Doll MD [address] [place] [address] Family Medicine 03/09/23 documented as of this encounter
--- OUTSIDE RECORDS SUMMARY | 2024-10-26 22:02 | XMS_ITS | Continuity of Care Document ---
Author Organization [facility] Address [address] [place] [address] Phone Care Team Providers Care E Business Manager Name Role Phone Marcos Marcum MD Unavailable [...] Diagnoses Date Provider Providers Copied on Encounter [facility], [address] [place], [place], [id number], tel:[phone] [facility] No Information Jossue Rodríguez. [address], [id number], [place]. tel:[phone] PREV VISIT, NEW, AGE 18-39 [facility], [address] [place], [id number], [place] tel:[phone] [facility] Medicine PHysical (chief complaint) Routine medical exam Jossue Rodríguez. [address] [facility] [place], [id number], . tel:[phone] Family History Family Member Type Diagnosis Age [...]
--- OUTSIDE RECORDS SUMMARY | 2024-10-26 22:02 | XMS_ITS | Clinical Summary ---
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 Gender Identity Not on file Sexual Orientation Not on file Last Filed Vital Signs Vital Sign Reading Time Taken Comments Blood Pressure 102/88 06/22/2023 9:10 AM QUARTER BACKER Pulse 105 06/22/2023 9:10 AM QUARTER BACKER Temperature 36.4 C (97.6 F) 06/22/2023 9:10 AM QUARTER BACKER Respiratory Rate 16 06/22/2023 9:10 AM QUARTER BACKER Oxygen Saturation 96% 06/22/2023 9:10 AM QUARTER BACKER Inhaled Oxygen Concentration - - Weight 93 kg (205 lb) 06/22/2023 9:10 AM QUARTER BACKER Height 167.6 cm (5' 6 ) 06/22/2023 9:10 AM QUARTER BACKER Body Mass Index 33.09 06/22/2023 9:10 AM QUARTER BACKER Plan of Treatment Health Maintenance Due Date [...] Insurance MEDICAID [employer] Care Teams Automation Application Engineer Relationship Specialty Start Date End Date Titi Doll MD [address] [place] [address] PCP - General Family Medicine 03/09/23 Titi Doll MD [address] [place] [address] Family Medicine 03/09/23
--- OUTSIDE RECORDS SUMMARY | 2024-10-26 22:02 | XMS_ITS | CONTINUITY OF CARE DOCUMENT ---
Author Name braden feliciano Address Unknown Organization [facility] Address [address] [facility] [address] [place] [address] Phone [phone] Care Team Providers Care Tree Chipper Name Role Phone Brionna Card MD Unavailable [phone] NELY LOERA MD Unavailable NELY LOERA MD Unavailable PROBLEMS Condition Status [...] In-person encounter Office Visit PATTI BEE MD [facility] - In-person encounter Office Visit PATTI BEE MD [facility] - In-person encounter Office Visit PATTI BEE MD [facility] - In-person encounter Office Visit PATTI BEE MD [facility] - In-person encounter Office Visit PATTI BEE MD [facility] - In-person encounter Office Visit PATTI BEE MD [facility] - In-person encounter Office Visit PATTI BEE MD [facility] - In-person encounter Office Visit PATTI BEE MD [facility] In-person encounter Office Visit PATTI BEE MD [facility] - In-person encounter Office Visit PATTI BEE MD [facility] - In-person encounter Office Visit PATTI BEE MD [facility] - In-person encounter Office Visit PATTI BEE MD [facility] - In-person encounter Office Visit PATTI BEE MD [facility] - In-person encounter Office Visit PATTI BEE MD [facility] - In-person encounter Office Visit PATTI BEE MD [facility] - In-person encounter Office Visit PATTI BEE MD [facility] - In-person encounter Office Visit PATTI BEE MD [facility] - In-person encounter Office Visit PATTI BEE MD [facility] - In-person encounter Office Visit PATTI BEE MD [facility] - In-person encounter Office Visit PATTI BEE MD [facility] - In-person encounter Office Visit PATTI BEE MD [facility] - In-person encounter Office Visit PATTI BEE MD [facility] Back pain, lowerFamily history of hypertensionNicotine [...] 0 alanine aminotransferase (SGPT), serum 79.0 1/L [facility] 0.0 - 41.0 High 0 protein, total, serum 7.5 g/dL [facility] 6.6 - 8.7 0 bilirubin, serum, total 1.1 mg/dL [facility] 0.0 - 1.2 0 urea nitrogen, blood 15.0 mg/dL [facility] 6.0 - 20.0 0 blood glucose, random 88.0 mg/dL [facility] 74.0 - 99.0 0 red blood cell distribution width, size density 40.7 fL [facility] - 0 immature granulocytes, percentage of total cells, blood 0.3 % [facility] - 0 nucleated red blood cells as percent of blood leukocytes 0.0 % [facility] - 0 red blood cell (erythrocyte) count, per high power field 0.0 10*3/UL [facility] - 0 eosinophils as percent of blood leukocytes 1.8 % [facility] - 0 neutrophils as percent of blood leukocytes 45.0 % [facility] - 0 Absolute Neutrophils 2.8 CELLS/UL [facility] 1.5 - 7.8 0 basophils as percent of blood leukocytes 0.3 % [facility] - 0 Absolute Basophils 0.0 CELLS/UL [facility] 0.0 - 0.2 0 monocytes as percent of blood leukocytes 4.8 % [facility] - 0 Absolute Monocytes 0.3 CELLS/UL [facility] 0.2 - 1.0 0 lymphocytes as percent of blood leukocytes 47.8 % [facility] - 0 Absolute Lymphocytes 3.0 CELLS/UL [facility] 0.9 - 3.9 0 mean platelet volume 11.5 (?) [facility] - 0 platelet count 239.0 THOUSAND/ UL [...] Payer name Policy type / Coverage type [place] red democrat [place] [employer] MEDICAID (2) Medicaid [id number] TREATMENT PLAN Date Name HEPATITIS PANEL HEPATIC FUNCTION FISHER EL HEMOGLOBIN A1c TSH, 3RD GENERATION W/REFLEX TO FT4 LIPID PANEL COMPREHENSIVE METABO LIC PANEL W/EGFR CBC (INCLUDES DIFF/P LT)
--- NOTE | 2024-10-26 22:16 | PC.NURSE ---
report to michelle winston as pt was moved from er 22 to er h2
[2024-10-26] MEDS: SODIUM CHLORIDE 0.9% IV 1,000 ML 999 ML IV CONT (22:19)
--- NOTE | 2024-10-26 22:19 | PC.NURSE ---
ultra sound at bedside at this time.
[2024-10-26] MEDS: fentaNYL CITRATE INJ (*CRX) 100 MCG/2 ML VIAL 50 MCG IV PUSH (23:17)
[2024-10-26 23:27] LABS: INR 0.9; Prothrombin Time 12.2 Seconds (11.1-14.7)
[2024-10-26 23:28] LABS: Partial Thromboplastin Time 28.6 Seconds (22.3-36.8)
[2024-10-27] VITALS (9 sets, daily range): BP systolic 110–126; BP diastolic 75–88; PULSE 81–88; RESP 13–32; O2SAT 94–97
[2024-10-27 00:45] LABS: Add Urine Microscopic? NO; Appearance Urine Clear (Clear); Bilirubin Urine Negative (Negative); Blood Urine Negative (Negative); Color Urine Yellow (Yellow); Glucose Urine UA Negative (Negative); Ketones Urine Negative (Negative); Leukocyte Esterase Ur Negative LEU/UL (Negative); Nitrate Urine Negative (Negative); Protein Urine Negative (Negative); Specific Grav Ur > 1.045 (1.001-1.035); Urobilinogen Urine 0.2 mg/dL (<2.0)
[2024-10-27] MEDS: fentaNYL CITRATE INJ (*CRX) 100 MCG/2 ML VIAL 50 MCG IV PUSH (00:59)
[2024-10-27 01:49] LABS: Trichomonas Vag PCR NOT DETECTED (NOT DETECTE)
[2024-10-27 02:14] LABS: Chlamydia trachomatis NOT DETECTED (NOT DETECTE); Neisseria gonorrhoeae PCR NOT DETECTED (NOT DETECTE)
[2024-10-27] MEDS: KETOROLAC 30 MG/ML VIAL (*BKC) IV PUSH (03:29)
[2024-10-27] MEDS: DICYCLOMINE HCL 10 MG CAPSULE 20 MG PO (05:17)
[2024-10-27] MEDS: PHENAZOPYRIDINE HCL 100 MG TABLET PO (06:01)
== END 2024-10-27 06:40 | disposition home or self-care (01) ==
PROVIDERS: Emergency Provider Student in an Organized Health Care Education/Training Program; PCP Emergency Medicine
DX: N43.3 Hydrocele, unspecified (principal); K40.20 Bilateral inguinal hernia, without obstruction or gangrene, not specified as recurrent; E78.5 Hyperlipidemia, unspecified; E03.9 Hypothyroidism, unspecified
CPT/HCPCS: 36415; 74177; 76870; 80053; 81003; 83605; 83690; 83735; 85025; 85610; 85730; 87040; 87491; 87591; 87661; 93976; 96361; 96374; 96375; 99284; A9270; J1171; J1885; J3010; J7030; Q9967

== ENCOUNTER 2024-11-01 12:20 | Emergency (ER) | payer OTHER, SELFPAY ==
--- NOTE | ~2024-11-01 | CT_ITS ---
CLINICAL INDICATION: Left testicular pain COMPARISON: CT examination of the abdomen and pelvis performed 6 days earlier (and dating back to 02/04), yielding a right inguinal hernia but otherwise unremarkable. Reference was made to an ultrasound examination of the scrotum, performed 6 days earlier, yielding be nign results. TECHNIQUE: Multiple contiguous axial images of the abdomen and pelvis were performed following the ad ministration of with 100 mL Omnipaque-350 intravenous contrast The dose-length product (DLP) was 734.39 mGy-cm. Automated exposure control and iterative reconstruction technique were employed. FINDINGS/OBSERVATIONS: Visualized lower thorax: Trace bibasilar atelectasis, unchanged from prior The heart is of normal size, without pericardial effusion. Small hiatal hernia is present. Liver: 14 mm focus of decreased attenuation within segment 7 of the liver, unchanged from 202, repre senting either a hemangioma versus a cyst. The liver demonstrates homogeneous enhancement and is not enlarged measuring 16 cm in longitudinal di mension. Gallbladder and biliary system: The gallbladder is only minimally distended, and otherwise unremarkable. Pancreas: The pancreas enhances homogeneously without ductal dilatation. Spleen: The spleen enhances homogeneously and is not enlarged measuring 8 cm in longitudinal dimension. Kidneys: The bilateral kidneys enhance symmetrically without hydronephrosis or renal calculi. Adrenal glands: Unremarkable. Gastrointestinal tract: Colonic diverticulosis without surrounding inflammatory change. Appendix: The air-filled appendix is of normal caliber (axial series, images 80 through 97). Vasculature: Unremarkable. Lymph nodes: No pathologically enlarged or morphologically suspicious lymph nodes within the retroperitoneum or at the root of the mesentery. Pelvic structures: The bladder is distended. Within the perivesical fat, to the left of midline at the level of the left inguinal canal are multip le well-circumscribed fat-containing nodules with surrounding inflammatory change. These nodules have increased in size since 2022 examination and has since developed surrounding inflammatory change, an interval change from previous examinations (although present on exam performed 6 days earlier). This area may also be evaluated with ultrasound, at the time of the scrotal Doppler, if the patient is cl inically able. This area is just medial to the common femoral artery and vein. The prostate gland is not enlarged. Body wall and musculoskeletal: Small fat-containing umbilical hernia. As above. 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 IMPRESSION: Findings within the perivesical fat, to the left of midline at the level of the left inguinal canal ( as detailed above) for which additional evaluation with ultrasound may be performed, just medial to t he common femoral artery and vein. Reviewed, dictated and finalized at location A. IMPRESSION: Findings within the perivesical fat, to the left of midline at the level of the left inguinal canal (as detailed above) for which additional evaluation with u ltrasound may be performed, just medial to the common femoral artery and vein.
--- NOTE | ~2024-11-01 | US_ITS ---
EXAMINATION: US scrotum doppler DATE: 11/01/2024 14:40 INDICATION: Testicular pain TECHNIQUE: Sonographic evaluation of the scrotum was performed assessing grayscale appearance and col or Doppler flow. Spectral Doppler evaluation was also performed. COMPARISON: 10/26/2024 FINDINGS: RIGHT TESTICLE: The right testicle measures 4.6 x 3.3 x 4.4 cm. Arterial and venous flow are present. No hydrocele is present. RIGHT EPIDIDYMIS: The right epididymis measures 17 mm. In greatest dimension Within the right epididymis is a well circumscribed anechoic avascular structure measuring 3 x 3 x 3 mm, consistent with a simple cyst within the epididymal head for which no further follow-up is needed . LEFT TESTICLE: The left testicle measures 4.9 x 2.9 x 3.3 cm. Arterial and venous flow are demonstrated. No hydrocele is present. LEFT EPIDIDYMIS: The left epididymis measures 20 mm. In greatest dimension IMPRESSION: Right epididymal head simple cyst measuring 3 mm in greatest dimension. No additional abnormality is detected. Reviewed, dictated and finalized at location A.
--- NOTE | ~2024-11-01 | US_ITS ---
EXAM: Focused ultrasound examination of the soft tissues of the left groin HISTORY: left inguinal canal nodules on CT TECHNIQUE: Sonographic evaluation of the soft tissues of the left groin were performed assessing casper scale appearance and color Doppler flow. COMPARISON: CT examination of the abdomen and pelvis performed 3 hours earlier and dating back to 02/04. FINDINGS: Sonographic evaluation of the soft tissues of the left inguinal canal demonstrate well-circumscribed reniform shaped foci of decreased echogenicity measuring 7 mm in short axis dimension, likely represe nting an enlarged lymph nodes. The area of imaging concern was deep to this focus, adjacent to the bladder, possibly beyond the visu alization of ultrasound. Sonographic evaluation of the remainder of the soft tissues of the left inguinal canal demonstrate be nign fibrofatty and fibromuscular elements without a cystic or solid lesion of concern. IMPRESSION: Unremarkable findings within the inguinal canal for which follow-up, nonemergent contrast-enhanced MR I of the pelvis would provide additional information, if the patient is clinically able. The abnormality detected on CT was deep to the inguinal canal although at the same level anatomically , but medial to the canal within the peritoneum, possibly beyond the visualization of ultrasound. Reviewed, dictated and finalized at location A. IMPRESSION: Unremarkable findings within the inguinal canal for which follow-up, nonemergen t contrast-enhanced MRI of the pelvis would provide additional information, if the patient is clinically able. The abnormality detected on CT was deep to the inguinal canal although at the s ermias level anatomically, but medial to the canal within the peritoneum, possibly beyond the visualization of ultrasound.
[2024-11-01 12:23] VITALS: BP 142/90; PULSE 106; RESP 18; TEMP 36.8; O2SAT 99
--- OUTSIDE RECORDS SUMMARY | 2024-11-01 12:23 | XMS_ITS | Patient Health Record ---
Author Organization [facility] Address [address] [place] [address] Care Team Providers Care Security And Compliance Project Manager Name Role Phone Kyaw Jorden Unavailable [phone] REASON FOR REFERRAL No Information MEDICATIONS Medication SIG (Take, Route, Frequency, Duration) Notes Start Date End Date Status Ergocalciferol 1.25 MG (04484 UT) 1 capsule Orally Once a week for 90 day(s) 02/13/2024 05/31/2025 Active Calcitriol 0.25 MCG TAKE ONE CAPSULE BY MOUTH EVERY OTHER DAY for 120 Active SOCIAL HISTORY Sex Assigned At : Social History Observation Description Sex Assigned At Male PROBLEMS Problem Type ICD Code Onset Dates Problem Status W/U Status Risk SNOMED Code Notes Problem Hypothyroidism, unspecified (E03.9) Active confirmed Problem Anxiety disorder, unspecified (F41.9) Active confirmed Anxiety disorde r (431989045) Problem Essential (primary) hypertension (I10) Active confirmed Essential hypertension (70396232) Problem Fatty (change of) liver, not elsewhere classified (K76.0) Active confirmed Fatty liver (258450439) Problem Proteinuria, unspecified (R80.9) Active confirmed Proteinuria (40389920) Problem Gastro-esophage al reflux disease with esophagitis, without bleeding (K21.00) Active confirmed Gastroesophagea l reflux disease with esophagitis (disorder) (764653465) Problem Chronic kidney disease, stage 3a (N18.31) Active confirmed Chronic kidney disease stage 3A (disorder) (474451669) Encounters Encounter Location Date Provider Diagnosis [facility] [address] [facility] [address] [place] [address] 02/13/2024 Jorden Card Chronic kidney disease, stage 3a N18.31 ; Essential (primary) hypertension I10 ; Anxiety disorder, unspecified F41.9 ; Gastro-esophageal reflux disease with esophagitis, without bleeding K21.00 and Hypothyroidism, unspecified E03.9 [facility] [address] [address] 06/11/2024 Jorden Card [facility] [address] [place] [address] 07/23/2024 Jorden Card [facility] [address] [address] 08/13/2024 Jorden Card [facility] [address] [address] 09/03/2024 Jorden Card Chronic kidney disease, stage 3a N18.31 ; Essential (primary) hypertension I10 ; Anxiety disorder, unspecified F41.9 ; Gastro-esophageal reflux disease with esophagitis, without bleeding K21.00 ; Hypothyroidism, unspecified E03.9 ; Fatty (change of) liver, not elsewhere classified K76.0 and Proteinuria, unspecified R80.9 [facility] [address] [address] 06/11/2024 Jorden Card [facility] [address] [address] 09/03/2024 Jorden Lim [address] [place] [address] 02/13/2024 Jorden Card ASSESSMENTS Encounter Date Diagnosis [...] Name:Jorden Card , 12/05/2024 02:00:00 PM, [address] [facility] [address], [address],
--- OUTSIDE RECORDS SUMMARY | 2024-11-01 12:23 | XMS_ITS ---
Author Organization [facility] Address [id number] [place] [address] Care Team Providers Care Rn Advice Name Role Phone Jorden Card Unavailable [phone] MEDICATIONS Medication SIG (Take, Route, Frequency, Duration) Notes Start Date End Date Status Ergocalciferol 1.25 MG (62554 UT) 1 capsule Orally Once a week for 90 day(s) 02/13/2024 05/31/2025 Active Calcitriol 0.25 MCG 1 capsule Orally Onc e a day for 90 day(s) 09/03/2024 05/31/2025 Active SOCIAL HISTORY Sex Assigned At : Social History Observation Description Sex Assigned At Male Encounters Encounter Location Date Provider Diagnosis [facility] [address] [facility] [address] [place] [address] 09/03/2024 Jorden Card PLAN OF TREATMENT Medication Medication Name Sig Start Date Stop Date Notes Ergocalciferol 1.25 MG (5000 0 UT) 1 capsule Orally Once a week for 90 day(s) 02/13/2024 05/31/2025 Calcitriol 0.25 MCG 1 capsule Orally Onc e a day for 90 day(s) 09/03/2024 05/31/2025 Next Appt Details Provider Name:Jorden Card , 12/05/2024 02:00:00 PM, [address] [facility], [place], [address], Progress Notes * Sina ROBERTOOB:1980 (44 yo M)Acc No.[id number]:09/03/2024 Patient: Eros ROBERTO :1980 Age:44 Y Sex:Male Address:[address] [place] [address] * Refills Refill Ergocalciferol Capsule, 1.25 MG (35073 UT), Orally, 13, 1 capsule, Once a week, 90 day(s), Refills=2 Start Calcitriol Capsule, 0.25 MCG, Orally, 90 Capsule, 1 capsule, Once a day, 90 day(s), Refills=2 * * Date:
--- OUTSIDE RECORDS SUMMARY | 2024-11-01 12:23 | XMS_ITS | Clinical Summary ---
Author Organization [facility] Address [address] [place] [address] Phone Care Team Providers Care Chain Hoist Operator Name Role Phone Titi Doll MD Primary Care Provider [phone] Titi Doll MD Unavailable Allergies Active Allergy [...] on file Legal Sex Male 3:16 PM JORDAN MAN Gender Identity Not on file Sexual Orientation Not on file Last Filed Vital Signs Vital Sign Reading Time Taken Comments Blood Pressure 102/88 06/22/2023 9:10 AM JORDAN MAN Pulse 105 06/22/2023 9:10 AM JORDAN MAN Temperature 36.4 C (97.6 F) 06/22/2023 9:10 AM JORDAN MAN Respiratory Rate 16 06/22/2023 9:10 AM JORDAN MAN Oxygen Saturation 96% 06/22/2023 9:10 AM JORDAN MAN Inhaled Oxygen Concentration - - Weight 93 kg (205 lb) 06/22/2023 9:10 AM JORDAN MAN Height 167.6 cm (5' 6 ) 06/22/2023 9:10 AM JORDAN MAN Body Mass Index 33.09 06/22/2023 9:10 AM JORDAN MAN Plan of Treatment Health Maintenance Due Date [...] Insurance MEDICAID [employer] BET[employer] HE[employer] Care Teams Chain Hoist Operator Relationship Specialty Start Date End Date Titi Doll MD [address] [place] [address] PCP - General Family Medicine 03/09/23 Titi Doll MD [address] [place] [address] Family Medicine 03/09/23
--- OUTSIDE RECORDS SUMMARY | 2024-11-01 12:23 | XMS_ITS | Clinical Summary ---
Author Organization [facility] Address [address] [place] [address] Care Team Providers Care Marine Photographer Name Role Phone Arcadio Myers Primary Care Provider Source Comments [facility],non-owned Affiliates and Associated Physician Practices is amultiple site organization consisting of ambulatory clinics and hospital sitesin [place], [place], [place] and [place]. This disclosure is being madepursuant to the Care Everywhere program and may not contain all information available regarding this patient. Last updated 18.[facility] Allergies Active Allergy Reactions Criticality Noted Date [...] 1:00 PM 10/28/2018 12:21 PM Care Teams Marine Photographer Relationship Specialty Start Date End Date Sukhjinder Myers MD [address] [address] PCP - General 10/13/16
--- OUTSIDE RECORDS SUMMARY | 2024-11-01 12:23 | XMS_ITS ---
Author Organization [facility] Address [address] [place] [address] Care Team Providers Care Retail Pharmacy Merchandiser Name Role Phone Kyaw Jorden Unavailable [phone] SOCIAL HISTORY Sex Assigned At : Social History Observation Description Sex Assigned At Male Encounters Encounter Location Date Provider Diagnosis [place] [facility] [address] [facility] 15 [place] [address] 08/13/2024 Jorden Card PLAN OF TREATMENT Next Appt Details Provider Name:Jorden Card , 12/05/2024 02:00:00 PM, [address] [facility], [place], [address], Progress Notes * Sina ROBERTOOB:1980 (44 yo M)Acc No.[id number]:08/13/2024 Progress Notes Patient: Eros ROBERTO Provider: MD ABHILASH, Meek.Mac.C.P, F.A.S.N. :1980 Age:44 Y Sex:Male Date:08/13/2024 Address:[address] [place] [address] Subjective: * Chief Complaints: * * Medical History: Objective: Assessment: Plan: * Treatment: * Billing Information: * Visit Code: * Procedure Codes: * Sign off status: Pending * Provider: MD ABHILASH, Meek.Mac.C.P, F.A.S.N. Date: 08/13/2024
--- OUTSIDE RECORDS SUMMARY | 2024-11-01 12:23 | XMS_ITS | Continuity of Care Document ---
Author Organization [facility] Address [address] [place] [address] [place] [address] Phone Care Team Providers Care Personal Clothing Laundry Aide Name Role Phone Marcos Marcum MD Unavailable [...] Diagnoses Date Provider Providers Copied on Encounter [facility], [address] [place], [place], [id number], tel:[phone] [facility] No Information Jossue Rodríguez. [address], [place], [id number], [place]. tel:[phone] PREV VISIT, NEW, AGE 18-39 [facility], [address] [place], [place], [address], [place] tel:[phone] [facility] Medicine PHysical (chief complaint) Routine medical exam Jossue Rodríguez. [address] [facility] [place], [id number], . tel:[phone] Family History Family Member Type Diagnosis Age At Onset Mother Problem (finding) breast CA Father Problem (finding) prostate CA at 56 Brother Problem (finding) Alive and well Payers Payer name Insurance type Covered alliance party ID Authormeera tipriscilla(s) No Information Social [...]
--- OUTSIDE RECORDS SUMMARY | 2024-11-01 12:23 | XMS_ITS | Encounter Summary ---
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
--- OUTSIDE RECORDS SUMMARY | 2024-11-01 12:23 | XMS_ITS | Continuity of Care Document ---
Author Organization [facility] Address [address] [place] [address] [place] [address] Phone Care Team Providers Care Ballpoint Pens Assembler Name Role Phone Marcos Marcum MD Unavailable [...] times every day 2 MG - Active rosuvastatin 10 mg tablet take 1 tablet by oral route every day 10 MG - Active Synthroid 25 mcg tablet take 1 tablet by oral route every day 25 MCG - Active doxepin 75 mg capsule take [...] Providers Copied on Encounter OFFICE/OUTPA TIENT VISIT, [facility], [address], [place], [place], [id number], [place] tel:[phone] [facility] weight gain1 (chief complaint) thyroid1 (chief complaint) HLP (chief complaint) abd pain1 (chief complaint) Abnormal weight gainHashimoto's thyroiditisMixed hyperlipidemiaGener alized abdominal pain 4 Jossue Rodríguez. [address], [place], [place], [address] , [place]. tel:[phone] OFFICE/OUTPA TIENT VISIT, [facility], [address] [place], [address], [place] tel:[phone] [facility] finger1 (chief complaint) Hep C (chief complaint) abd pain1 (chief complaint) Abdominal painHepatitis CEczema 4 Jossue Rodríguez. [address], [place], [place], [address] , [place]. tel:[phone] OFFICE/OUTPA TIENT VISIT, EST [facility], [address] [place], [address], [place] tel:[phone] [facility] abd pain1 (chief complaint) Abdominal painHepatitis CGeneralized Anxiety Disorder 4 Jossue Rodríguez. [address], [place], [place], [address] , [place]. tel:[phone] OFFICE/OUTPA TIENT VISIT, [facility], [address] [place], [address], [place] tel:[phone] [facility] hashimoto1 (chief complaint) HLP (chief complaint) weight1 (chief complaint) Jose's thyroiditisMixed hyperlipidemiaAbnor mal weight gain 0 4 Jossue Rodríguez. [address], [place], [place], [address] , [place]. tel:[phone] OFFICE/OUTPA TIENT VISIT, EST [facility], [address], [place], [place], [address], [place] tel:[phone] [facility] hashimoto1 (chief complaint) HLP (chief complaint) obesity1 (chief complaint) Jose's thyroiditisFatty liverAbnormal weight gainMixed hyperlipidemia 4 Jossue Rodríguez. [address], [place], [place], [address] , [place]. tel:[phone] OFFICE/OUTPA TIENT VISIT, [facility], [address], [place], [place], [address], [place] tel:[phone] [facility] thyroid1 (chief complaint) Jose's thyroiditis 4 Jossue Rodríguez. [address], [place], [place], [address] , [place]. tel:[phone] OFFICE/OUTPA TIENT VISIT, [facility], [address], [place], [place], [address], [place] tel:[phone] [facility] weight1 (chief complaint) sick (chief complaint) weight1 (chief complaint) Jose's thyroiditisAbnormal weight lossViral infection 4 Jossue Rodríguez. [address], [place], [place], [address] , [place]. tel:[phone] PREV VISIT, EST, AGE 40-64 [facility], [address], [place], [place], [address], [place] tel:[phone] [facility] Medicine physical (chief complaint) Encounter for general adult medical examination without abnormal findings 4 Jossue Rodríguez. [address], [place], [place], [address] , [place]. tel:[phone] OFFICE/OUTPA TIENT VISIT, [facility], [address], [place], [place], [address], [place] tel:[phone] [facility] fatty liver1 (chief complaint) weight gain1 (chief complaint) HLP (chief complaint) insomnia1 (chief complaint) Fatty liverAbnormal weight gainMixed hyperlipidemiaInsom ady Jossue Rodríguez. [address], [place], [place], [address] , [place]. [phone] Family History Family Member Type Diagnosis Age At Onset Mother Problem Alive and well Brother Problem Alive and well Father Problem Alive and well Payers Payer name Insurance type Covered libertarian ID Authoriza tion(s) No Information Social History [...] Date Complaint History Of Prese nt Illness abd pain1 Pt accidently sw allowed a bone and he was seen at ER and the bone was gone on repeat x rays. He denies any recurrent abd pain HLP Pt has HLP pt is on crestor Pt denies any myalgia thyroid1 Pt has jose . Pt denies any dysphagia or neck pain pt is on synthroid and tsh ok weight gain1 Pt has been gain ing weight and he is on phentermine .Pt states that it gives him more energy. pt has not been diet and exercising abd pain1 Pt states that r ight side abd pain improved. Pt had negative CT and lab and UA. Pt tested negative for Hep C viral load Hep C Pt was treated. Pt had hep C viral testing done which was negative. finger1 Pt c/o right mid dle finger rash with some clear drainage. for several weeks Pt notices some small blisters which pops with clear fluid Pt has been putting OTC steroid topical but has not helped. Pt notices mld itching abd pain1 Pt c/o severe ri ght [...] liver and he sees liver specialist at [facility] HLP Pt has HLP Pt fausto lainez .pt denies any myalgia. his lipid is ok weight1 Pt is on phenter mine Pt finished phentermine one week ago. Pt notices more energy and more motivation to work out with phentermine. Pt has not lost much weight, however. hashimoto1 PIt has hashimot o Pt denies dysphagia or neck pain. Pt is on synthroid and his TSH is ok obesity1 Pt is obese .Pt has been taking phentermine .He has been off phentermine for one month Pt lost some weight with phentermine Pt denies any side effects with phentermine . Pt gained some weight back since off phentermine HLP Pt has HLP Pt ta jaylens crestor Pt denies any myalgia Pt needs it refilled. hashimoto1 Pt has Jose thyroid disease with low thyroid. Pt started 25 mcg of synthroid last month Pt denies any dysphagia or neck pain thyroid1 Pt has jose thyroid disease Pt [...] Pt denies any side effects with phentermine weight1 Pt has low thyro id Pt denies any dysphagia or neck pain Pt has elevated TPO. Lab missed TSH. pt does c/o fatigue with difficulty losing weight sick Pt c/o dry cough , subjective, fever, stomach upset, sweating myalgia for 3 days Pt denies any sore throat Pt denies any sob or headache. Pt is able to keep fluid down physical Pt needs annual physical. pt has high TG. Pt has history of right kidney cyst and he sees Dr. Card(nephrology) from [place]. Pt states that he really does not [...] feels more energy. Pt lost some weight. insomnia1 Pt has insomnia Pt takes doxepin qhs and doing ok HLP Pt has HLP Pt is on statin but he does not know the name of it weight gain1 Pt has gained 10 0 pounds during last year. Pt states that he can not lose it. fatty liver1 Pt has history o f hep C s/p successful treatment back in 2015. Pt has fatty liver. Pt sees GI doctor at [facility]. Pt was told that he needs to lose weight as soon as possible. Pt does not drink alcohol. Pt initially got MRI done of abdomen due to distended abdomen which showed fatty liver. Instructions Date Instruction Additional Infor mation No Information Assessments Type Assessment Date assessment Abnormal weight gain assessment Jose's thyroiditis 024 assessment Mixed hyperlipidemia assessment Generalized abdominal pain Mental Status Date Cognitive Assessment Orientation - Aurora ed to time, place, person, situation.
--- OUTSIDE RECORDS SUMMARY | 2024-11-01 12:23 | XMS_ITS ---
Author Organization [facility] Address [address] [place] [address] Care Team Providers Care Layout Inspector Name Role Phone Jorden Card Unavailable [phone] SOCIAL HISTORY Sex Assigned At : Social History Observation Description Sex Assigned At Male PROBLEMS Problem Type ICD Code Onset Dates Problem Status W/U Status Risk SNOMED Code Notes Problem Fatty (change of) liver, not elsewhere classified (K76.0) Active confirmed Fatty liver (668307078) Problem Proteinuria, unspecified (R80.9) Active confirmed Proteinuria (52849652) Encounters Encounter Location Date Provider Diagnosis [facility] [address] [facility] [address] [place] [address] 09/03/2024 Jorden Card Chronic kidney disease, stage [...] Details Provider Name:Holland Madden/02/2025 02:00:00 PM, [address] [facility], [facility], [place], [address], Progress Notes * Sina HERNANDEZOB:1980 (44 yo M)Acc No.[id number]:09/03/2024 Progress Notes Patient: Eros HERNANDEZ Provider: MD ABHILASH, Meek.Mac.C.P, F.A.S.N. :1980 Age:44 Y Sex:Male Date:09/03/2024 Address:[address] [place] [address] Subjective: * Chief Complaints: * * Medical [...] Treatment: * Billing Information: * Visit Code: 78040 Office Visit, Est Pt., Level 4. * Procedure Codes: * Sign off status: Pending * Provider: MD ABHILASH, Meek.Mac.C.P, F.A.S.N. Date: 09/03/2024
--- OUTSIDE RECORDS SUMMARY | 2024-11-01 12:23 | XMS_ITS | Clinical Summary ---
Author Organization [facility] Address [address] [place] [address] Care Team Providers Care Water Main Inspector Name Role Phone Marcos Marcum MD Primary Care Provider [phone] Allergies Active Allergy Reactions Criticality Noted Date [...] Department Care Team Description 09/02/2024 12:00 PM KEYBOARD SPECIALIST Office Visit [facility] Gastroenterology at [address] [place] [address] Devonte Joshua NP Liver lesion [...] on file Legal Sex Male 8:59 AM KEYBOARD SPECIALIST Gender Identity Not on file Sexual Orientation Not on file Obstetrics History Last Filed Vital Signs Vital Sign Reading Time Taken Comments Blood Pressure 110/67 09/02/2024 11:55 AM KEYBOARD SPECIALIST Pulse 96 09/02/2024 11:55 AM KEYBOARD SPECIALIST Temperature 36.8 C (98.2 F) 03/09/2018 12:43 PM CDT Respiratory Rate 18 03/09/2018 12:4 3 PM CDT Oxygen Saturation 97% 09/02/2024 11: 55 AM KEYBOARD SPECIALIST Inhaled Oxygen Concentration - - Weight 96.5 kg (212 lb 11.2 oz) 025 11:55 AM KEYBOARD SPECIALIST Height 167.6 cm (5' 6 ) 09/02/2024 11:5 5 AM KEYBOARD SPECIALIST Body Mass Index 34.33 09/02/2024 11:55 AM KEYBOARD SPECIALIST Plan of Treatment Health Maintenance Due [...] quantitative Blood (06/04/2024 11:09 AM CDT) Pathologist [facility] HCV RNA result Not Detected [facility] Comment: The quantifiable range of this assay is 15 IU/mL to 100,000,000 IU/mL (1.18 log IU/mL to 8.00 log IU/mL). Testing was performed by the [facility] 6800 HCV Test (Marc [employer] Testing performed at [facility] Current Interpretive Data was last revised on 2021 Testing performed by: [facility], [address] [facility], [place]., [address] Blood 06/04/2024 11:0 9 AM CDT 06/05/2024 11:14 AM CDT Rubi Beckett NP LAB MICROBIOLOGY - [facility] [place] [id number] [address] Department [place] [address] [facility] from Last 3 Months or Most Recently Relevant to Health Maintenance Insurance Advance Directives For more information, please contact: [phone] * Full Code (Latest Code Status on File) Date Activated Date Inactivated Comments 03/06/2018 9:34 PM 03/09/2018 9:00 PM Care Teams Water Main Inspector Relationship Specialty Start Date End Date Marcos Marcum MD [address] [place] [address] PCP - General Family Medicine 11/09/23
--- OUTSIDE RECORDS SUMMARY | 2024-11-01 12:23 | XMS_ITS | Referral Summary ---
Author Organization [facility] Address [address] [place] [address] Care Team Providers Care Glass Etcher Name Role Phone Marcos Marcum MD Primary Care Provider [phone] Encounters Date Type Department Care Team Description 09/02/2024 12:00 PM TRAVELING PLANT OPERATOR Office Visit [facility] Gastroenterology at [address] [place] [phone] Devonte Joshua NP Liver lesion (Primary Dx); [...] on file Legal Sex Male 8:59 AM TRAVELING PLANT OPERATOR Gender Identity Not on file Sexual Orientation Not on file Last Filed Vital Signs Vital Sign Reading Time Taken Comments Blood Pressure 110/67 09/02/2024 11:55 AM TRAVELING PLANT OPERATOR Pulse 96 09/02/2024 11:55 AM TRAVELING PLANT OPERATOR Temperature 36.8 C (98.2 F) 03/09/2018 12:43 PM CDT Respiratory Rate 18 03/09/2018 12:4 3 PM CDT Oxygen Saturation 97% 09/02/2024 11: 55 AM TRAVELING PLANT OPERATOR Inhaled Oxygen Concentration - - Weight 96.5 kg (212 lb 11.2 oz) 025 11:55 AM TRAVELING PLANT OPERATOR Height 167.6 cm (5' 6 ) 09/02/2024 11:5 5 AM TRAVELING PLANT OPERATOR Body Mass Index 34.33 09/02/2024 11:55 AM TRAVELING PLANT OPERATOR Plan of Treatment Not on file Procedures Procedure Name Priority Date/Time Associated Diagnosis Comments HEPATITIS C RNA, QUANTITATIVE, PCR Routine 06/04/2024 11:09 AM CDT Hepatitis C virus infection, unspecified chronicity from Last 3 Months or Most Recently Relevant to Health Maintenance Results * Hepatitis C (HCV) RNA PCR, quantitative Blood (06/04/2024 11:09 AM CDT) [facility] HCV RNA result Not Detected [facility] Comment: The quantifiable range of this assay is 15 IU/mL to 100,000,000 IU/mL (1.18 log IU/mL to 8.00 log IU/mL). Testing was performed by the [facility] 6800 HCV Test (Marc [employer] Testing performed at [facility] Current Interpretive Data was last revised on 2021 Testing performed by: [facility], [address] [place] [address]., [address] Blood 06/04/2024 11:0 9 AM CDT 06/05/2024 11:14 AM CDT Rubi Becktet NP LAB MICROBIOLOGY - [facility] ORDERABLES Final Result [place] [id number] [address] Department [place] [address] [facility] from Last 3 Months or Most Recently Relevant to Health Maintenance Insurance [facility] Advance Directives For more information, please contact: [phone] * Full Code (Latest Code Status on File) Date Activated Date Inactivated Comments 03/06/2018 9:34 PM 03/09/2018 9:00 PM Care Teams Glass Etcher Relationship Specialty Start Date End Date Marcos Marcum MD [facility] [place] [address] PCP - General Family Medicine 11/09/23
--- OUTSIDE RECORDS SUMMARY | 2024-11-01 12:23 | XMS_ITS | CONTINUITY OF CARE DOCUMENT ---
Author Name braden, braden Address Unknown Organization [facility] Address [address] [facility] [address] [place] [address] Phone [phone] Care Team Providers Care Engine Builder Name Role Phone Brionna Card MD Unavailable [phone] NELY LOERA MD Unavailable NELY LOERA [...] In-person encounter Office Visit PATTI BEE MD [facility] - In-person encounter Office Visit PATTI BEE MD [facility] - In-person encounter Office Visit PATTI BEE MD [facility] - In-person encounter Office Visit PATTI BEE MD [place] [facility] - In-person encounter Office Visit PATTI BEE MD [place] [facility] - In-person encounter Office Visit PATTI BEE MD [facility] - In-person encounter Office Visit PATTI BEE MD [facility] - In-person encounter Office Visit PATTI BEE MD [facility] - In-person encounter Office Visit PATTI BEE MD [facility] - In-person encounter Office Visit PATTI BEE MD [facility] - In-person encounter Office Visit PATTI BEE MD [place] [facility] - In-person encounter Office Visit PATTI BEE MD [facility] - In-person encounter Office Visit PATTI BEE MD [place] [facility] - In-person encounter Office Visit PATTI BEE MD [facility] - In-person encounter Office Visit PATTI BEE MD [place] [facility] - In-person encounter Office Visit PATTI BEE MD [place] [facility] - In-person encounter Office Visit PATTI BEE MD [place] [facility] - In-person encounter Office Visit PATTI BEE MD [place] [facility] - In-person encounter Office Visit PATTI BEE MD [facility] - In-person encounter Office Visit PATTI BEE MD [facility] - In-person encounter Office Visit PATTI BEE MD [facility] - In-person encounter Office Visit PATTI BEE MD [place] [facility] Back pain, lowerFamily history of hypertensionNicotine [...] 0 alanine aminotransferase (SGPT), serum 79.0 1/L [facility] 0.0 - 41.0 High 0 protein, total, serum 7.5 g/dL [facility] 6.6 - 8.7 0 bilirubin, serum, total 1.1 mg/dL [facility] 0.0 - 1.2 0 urea nitrogen, blood 15.0 mg/dL [facility] 6.0 - 20.0 0 blood glucose, random 88.0 mg/dL [facility] 74.0 - 99.0 0 red blood cell distribution width, size density 40.7 fL [facility] - 0 immature granulocytes, percentage of total cells, blood 0.3 % [facility] - 0 nucleated red blood cells as percent of blood leukocytes 0.0 % [facility] - 0 red blood cell (erythrocyte) count, per high power field 0.0 10*3/UL [facility] - 0 eosinophils as percent of blood leukocytes 1.8 % [facility] - 0 neutrophils as percent of blood leukocytes 45.0 % [facility] - 0 Absolute Neutrophils 2.8 CELLS/UL [facility] 1.5 - 7.8 0 basophils as percent of blood leukocytes 0.3 % [facility] - 0 Absolute Basophils 0.0 CELLS/UL [facility] 0.0 - 0.2 0 monocytes as percent of blood leukocytes 4.8 % [facility] - 0 Absolute Monocytes 0.3 CELLS/UL [facility] 0.2 - 1.0 0 lymphocytes as percent of blood leukocytes 47.8 % [facility] - 0 Absolute Lymphocytes 3.0 CELLS/UL [facility] 0.9 - 3.9 0 mean platelet volume 11.5 (?) [facility] - 0 platelet count 239.0 THOUSAND/ UL [...] Payer name Policy type / Coverage type Rueter red republican ID CLAUD[employer] MEDICAID (2) Medicaid [id number] TREATMENT PLAN Date Name HEPATITIS PANEL HEPATIC FUNCTION FISHER EL HEMOGLOBIN A1c TSH, 3RD GENERATION W/REFLEX TO FT4 LIPID PANEL COMPREHENSIVE METABO LIC PANEL W/EGFR CBC (INCLUDES DIFF/P LT)
--- OUTSIDE RECORDS SUMMARY | 2024-11-01 12:53 | XMS_ITS | Referral Summary ---
Author Organization [facility] Address [address] [place] [address] Care Team Providers Care Gas Meter Repair Supervisor Name Role Phone Marcos Marcum MD Primary Care Provider Encounters Date Type Department Care Team Description 09/02/2024 12:00 PM CARE SERVICES MANAGER Office Visit [facility] Medical Group Gastroenterology at [address] [place] [phone] Devonte Joshua NP Liver lesion (Primary Dx); [...] on file Legal Sex Male 8:59 AM CARE SERVICES MANAGER Gender Identity Not on file Sexual Orientation Not on file Last Filed Vital Signs Vital Sign Reading Time Taken Comments Blood Pressure 110/67 09/02/2024 11:55 AM CARE SERVICES MANAGER Pulse 96 09/02/2024 11:55 AM CARE SERVICES MANAGER Temperature 36.8 C (98.2 F) 03/09/2018 12:43 PM CDT Respiratory Rate 18 03/09/2018 12:4 3 PM CDT Oxygen Saturation 97% 09/02/2024 11: 55 AM CARE SERVICES MANAGER Inhaled Oxygen Concentration - - Weight 96.5 kg (212 lb 11.2 oz) 025 11:55 AM CARE SERVICES MANAGER Height 167.6 cm (5' 6 ) 09/02/2024 11:5 5 AM CARE SERVICES MANAGER Body Mass Index 34.33 09/02/2024 11:55 AM CARE SERVICES MANAGER Plan of Treatment Not on file Procedures Procedure Name Priority Date/Time Associated Diagnosis Comments HEPATITIS C RNA, QUANTITATIVE, PCR Routine 06/04/2024 11:09 AM CDT Hepatitis C virus infection, unspecified chronicity from Last 3 Months or Most Recently Relevant to Health Maintenance Results * Hepatitis C (HCV) RNA PCR, quantitative Blood (06/04/2024 11:09 AM CDT) [facility] HCV RNA result Not Detected [facility] Comment: The quantifiable range of this assay is 15 IU/mL to 100,000,000 IU/mL (1.18 log IU/mL to 8.00 log IU/mL). Testing was performed by the [facility] 6800 HCV Test (Marc [employer] Testing performed at [facility] Current Interpretive Data was last revised on 2021 Testing performed by: [facility], [address] [place] [address]., [address] Blood 06/04/2024 11:0 9 AM CDT 06/05/2024 11:14 AM CDT Rubi Beckett NP LAB MICROBIOLOGY - GENE RAL ORDERABLES Final Result [place] [id number] Department [place] [address] [facility] from Last 3 Months or Most Recently Relevant to Health Maintenance Insurance [facility] Advance Directives For more information, please contact: [phone] * Full Code (Latest Code Status on File) Date Activated Date Inactivated Comments 03/06/2018 9:34 PM 03/09/2018 9:00 PM Care Teams Gas Meter Repair Supervisor Relationship Specialty Start Date End Date Marcos Marcum MD [facility] [place] [address] PCP - General Family Medicine 11/09/23
--- OUTSIDE RECORDS SUMMARY | 2024-11-01 12:53 | XMS_ITS | Continuity of Care Document ---
Author Organization [facility] Address [email or web address] [address] Phone Care Team Providers Care Rip And Groove Machine Operator Name Role Phone Marcos Marcum MD Unavailable [...] Diagnoses Date Provider Providers Copied on Encounter [facility], [address] [facility] [place], [id number], tel:[phone] [facility] No Information Jossue Rodríguez. [address] [place], [address], [place]. tel:[phone] PREV VISIT, NEW, AGE 18-39 [facility], [address] [place], [place], [address], [place] tel:[phone] [facility] Medicine PHysical (chief complaint) Routine medical exam Jossue Rodríguez. [address] [facility] [place], [address], . tel:[phone] Family History Family Member Type Diagnosis Age At Onset Mother Problem (finding) breast CA Father Problem (finding) prostate CA at 56 Brother Problem (finding) Alive and well Payers Payer name Insurance type Covered democrat ID Authormeera tipriscilla(s) No Information Social History [...]
--- OUTSIDE RECORDS SUMMARY | 2024-11-01 12:53 | XMS_ITS | CONTINUITY OF CARE DOCUMENT ---
Author Name braden, braden Address Unknown Organization [facility] Address [address] [place] [address] Phone [phone] Care Team Providers Care Electronic Wirer Name Role Phone Brionna Card MD Unavailable NELY LOERA MD Unavailable NELY LOERA MD [...] In-person encounter Office Visit PATTI BEE MD [facility] - In-person encounter Office Visit PATTI BEE MD [facility] - In-person encounter Office Visit PATTI BEE MD [facility] - In-person encounter Office Visit PATTI BEE MD [facility] - In-person encounter Office Visit PATTI BEE MD [facility] - In-person encounter Office Visit PATTI BEE MD [facility] - In-person encounter Office Visit PATTI BEE MD [facility] - In-person encounter Office Visit PATTI BEE MD [facility] - In-person encounter Office Visit PATTI BEE MD [facility] - In-person encounter Office Visit PATTI BEE MD [facility] - In-person encounter Office Visit PATTI BEE MD [facility] - In-person encounter Office Visit PATTI BEE MD [facility] - In-person encounter Office Visit PATTI BEE MD [facility] - In-person encounter Office Visit PATTI BEE MD [facility] - In-person encounter Office Visit PATTI BEE MD [facility] - In-person encounter Office Visit PATTI BEE MD [facility] - In-person encounter Office Visit PATTI BEE MD [facility] - In-person encounter Office Visit PATTI BEE MD [facility] - In-person encounter Office Visit PATTI BEE MD [facility] - In-person encounter Office Visit PATTI BEE MD [facility] - In-person encounter Office Visit PATTI BEE MD [facility] - In-person encounter Office Visit PATTI BEE MD [facility] Back pain, lowerFamily history of hypertensionNicotine [...] 0 alanine aminotransferase (SGPT), serum 79.0 1/L [facility] 0.0 - 41.0 High 0 protein, total, serum 7.5 g/dL [facility] 6.6 - 8.7 0 bilirubin, serum, total 1.1 mg/dL [facility] 0.0 - 1.2 0 urea nitrogen, blood 15.0 mg/dL [facility] 6.0 - 20.0 0 blood glucose, random 88.0 mg/dL [facility] 74.0 - 99.0 0 red blood cell distribution width, size density 40.7 fL [facility] - 0 immature granulocytes, percentage of total cells, blood 0.3 % [facility] - 0 nucleated red blood cells as percent of blood leukocytes 0.0 % [facility] - 0 red blood cell (erythrocyte) count, per high power field 0.0 10*3/UL [facility] - 0 eosinophils as percent of blood leukocytes 1.8 % [facility] - 0 neutrophils as percent of blood leukocytes 45.0 % [facility] - 0 Absolute Neutrophils 2.8 CELLS/UL [facility] 1.5 - 7.8 0 basophils as percent of blood leukocytes 0.3 % [facility] - 0 Absolute Basophils 0.0 CELLS/UL [facility] 0.0 - 0.2 0 monocytes as percent of blood leukocytes 4.8 % [facility] - 0 Absolute Monocytes 0.3 CELLS/UL [facility] 0.2 - 1.0 0 lymphocytes as percent of blood leukocytes 47.8 % [facility] - 0 Absolute Lymphocytes 3.0 CELLS/UL [facility] 0.9 - 3.9 0 mean platelet volume 11.5 (?) [facility] - 0 platelet count 239.0 THOUSAND/ [...] Payer name Policy type / Coverage type [employer] party ID [employer] MEDICAID (2) Medicaid [id number] TREATMENT PLAN Date Name HEPATITIS PANEL HEPATIC FUNCTION FISHER EL HEMOGLOBIN A1c TSH, 3RD GENERATION W/REFLEX TO FT4 LIPID PANEL COMPREHENSIVE METABO LIC PANEL W/EGFR CBC (INCLUDES DIFF/P LT)
--- OUTSIDE RECORDS SUMMARY | 2024-11-01 12:53 | XMS_ITS | Continuity of Care Document ---
Author Organization [facility] Address [address] [place] [address] [place] [address] Phone Care Team Providers Care School Age Lead Teacher Name Role Phone Marcos Marcum MD [...] Providers Copied on Encounter OFFICE/OUTPA TIENT VISIT, [facility], [address], [place], [place], [address], [place] tel:[phone] [facility] weight gain1 (chief complaint) thyroid1 (chief complaint) HLP (chief complaint) abd pain1 (chief complaint) Abnormal weight gainHashimoto's thyroiditisMixed hyperlipidemiaGener alized abdominal pain 4 Joss[address] Rod[address]guez. [address], [place], [place], [address] , [place]. tel:[phone] OFFICE/OUTPA TIENT VISIT, [facility], [address] [place], [place], [address], [place] tel:[phone] [facility] finger1 (chief complaint) Hep C (chief complaint) abd pain1 (chief complaint) Abdominal painHepatitis CEczema 4 Jossue Rodríguez. [address], [place], [place], [address] , [place]. tel:[phone] OFFICE/OUTPA TIENT VISIT, EST [facility], [address] [place], [address], [place] tel:[phone] [facility] abd pain1 (chief complaint) Abdominal painHepatitis CGeneralized Anxiety Disorder 4 Jossue Rodríguez. [address], [place], [place], [address] , [place]. tel:[phone] OFFICE/OUTPA TIENT VISIT, [facility], [address] [place], [address], [place] tel:[phone] [facility] hashimoto1 (chief complaint) HLP (chief complaint) weight1 (chief complaint) Jose's thyroiditisMixed hyperlipidemiaAbnor mal weight gain 0 4 Jossue Rodríguez. [address], [place], [place], [address] , [place]. tel:[phone] OFFICE/OUTPA TIENT VISIT, EST [facility], [address], [place], [place], [address], [place] tel:[phone] [facility] hashimoto1 (chief complaint) HLP (chief complaint) obesity1 (chief complaint) Jose's thyroiditisFatty liverAbnormal weight gainMixed hyperlipidemia 4 Jossue Rodríguez. [address], [place], [place], [address] , [place]. tel:[phone] OFFICE/OUTPA TIENT VISIT, [facility], [address], [place], [place], [address], [place] tel:[phone] [facility] thyroid1 (chief complaint) Jose's thyroiditis 4 Jossue Rodríguez. [address], [place], [place], [address] , [place]. tel:[phone] OFFICE/OUTPA TIENT VISIT, [facility], [address], [place], [place], [address], [place] tel:[phone] [facility] weight1 (chief complaint) sick (chief complaint) weight1 (chief complaint) Ojse's thyroiditisAbnormal weight lossViral infection 4 Jossue Rodríguez. [address], [place], [place], [address] , [place]. tel:[phone] PREV VISIT, EST, AGE 40-64 [facility], [address], [place], [place], [address], [place] tel:[phone] [facility] physical (chief complaint) Encounter for general adult medical examination without abnormal findings 4 Jossue Rodríguez. [address], [place], [place], [address] , [place]. tel:[phone] OFFICE/OUTPA TIENT VISIT, [facility] [address], [place], [place], [address], [place] tel:[phone] [facility] fatty liver1 (chief complaint) weight gain1 (chief complaint) HLP (chief complaint) insomnia1 (chief complaint) Fatty liverAbnormal weight gainMixed hyperlipidemiaInsom ady Jossue Rodríguez. [address], [place], [place], [address] , [place]. [phone] Family History Family Member Type Diagnosis Age [...] liver and he sees liver specialist at [facility] hashimoto1 PIt has hashimot o Pt denies [...] cyst and he sees Dr. Card(nephrology) from [place]. Pt states that he really does not [...] fatty liver. Pt sees GI doctor at [facility]. Pt was told that he needs to [...] Mental Status Date Cognitive Assessment Orientation - Chauncey ed to time, place, person, situation.
--- OUTSIDE RECORDS SUMMARY | 2024-11-01 12:53 | XMS_ITS | Clinical Summary ---
Author Organization [facility] [employer] Address [address] [place] [address] Care Team Providers Care Screen Printer Name Role Phone Arcadio Myers Primary Care Provider [phone] Source Comments [facility],non-owned Affiliates and Associated Physician Practices is amultiple site organization consisting of ambulatory clinics and hospital sitesin [place], [place], [place] and [place]. This disclosure is being madepursuant to the Care Everywhere program and may not contain all information available regarding this patient. Last updated 18.[facility] Allergies Active Allergy Reactions Criticality Noted Date [...] 1:00 PM 10/28/2018 12:21 PM Care Teams Screen Printer Relationship Specialty Start Date End Date Sukhjinder Myers MD [address] [address] PCP - General 10/13/16
--- OUTSIDE RECORDS SUMMARY | 2024-11-01 12:53 | XMS_ITS | Clinical Summary ---
Author Organization [facility] Address [address] [place] [address] Phone Care Team Providers Care Kidney Puller Name Role Phone Titi Doll MD Primary Care Provider Titi Doll MD Unavailable Allergies Active Allergy [...] on file Legal Sex Male 3:16 PM ACCREDITED FARM MANAGER Gender Identity Not on file Sexual Orientation Not on file Last Filed Vital Signs Vital Sign Reading Time Taken Comments Blood Pressure 102/88 06/22/2023 9:10 AM ACCREDITED FARM MANAGER Pulse 105 06/22/2023 9:10 AM ACCREDITED FARM MANAGER Temperature 36.4 C (97.6 F) 06/22/2023 9:10 AM ACCREDITED FARM MANAGER Respiratory Rate 16 06/22/2023 9:10 AM ACCREDITED FARM MANAGER Oxygen Saturation 96% 06/22/2023 9:10 AM ACCREDITED FARM MANAGER Inhaled Oxygen Concentration - - Weight 93 kg (205 lb) 06/22/2023 9:10 AM ACCREDITED FARM MANAGER Height 167.6 cm (5' 6 ) 06/22/2023 9:10 AM ACCREDITED FARM MANAGER Body Mass Index 33.09 06/22/2023 9:10 AM ACCREDITED FARM MANAGER Plan of Treatment Health Maintenance Due Date [...] Insurance MEDICAID [employer] Care Teams Kidney Puller Relationship Specialty Start Date End Date Titi Doll MD [address] [place] [address] PCP - General Family Medicine 03/09/23 Titi Doll MD [address] [place] [address] Family Medicine 03/09/23
--- OUTSIDE RECORDS SUMMARY | 2024-11-01 12:53 | XMS_ITS | Encounter Summary ---
Author Organization [facility] Address [address] [place] [address] Phone Care Team Providers Care Product Design Engineer Name Role Phone Titi Doll MD Primary Care Provider [phone] Titi Doll MD Unavailable Encounter Details Date Type Department Care Team (Late st Contact Info) Description 09/12/2023 Telephone [facility] [address] [place] [address] Titi Doll MD [address] [place] [address] Social History Tobacco Use Types Packs/Day Years [...] on file Legal Sex Male 3:16 PM STRAP MACHINE OPERATOR AUTOMATIC Gender Identity Not on file Sexual Orientation Not on file documented as of this encounter Plan of Treatment Not on file documented as of this encounter Visit Diagnoses Not on filedocumented in this encounter Care Teams Product Design Engineer Relationship Specialty Start Date End Date Titi Doll MD [address] [place], [place] [id number] PCP - General Family Medicine 03/09/23 Titi Doll MD [address] [place] [address] Family Medicine 03/09/23 documented as of this encounter
--- OUTSIDE RECORDS SUMMARY | 2024-11-01 12:53 | XMS_ITS | Clinical Summary ---
Author Organization [facility] Address [address] [place] [address] Care Team Providers Care Paint Line Production Supervisor Name Role Phone Marcos Marcum MD Primary Care Provider [phone] Allergies Active Allergy Reactions Criticality Noted Date [...] Department Care Team Description 09/02/2024 12:00 PM SUPERVISING FLOORPERSON Office Visit [facility] G[facility]ology at [address] [place] [address] Devonte Joshua NP Liver lesion [...] on file Legal Sex Male 8:59 AM SUPERVISING FLOORPERSON Gender Identity Not on file Sexual Orientation Not on file Obstetrics History Last Filed Vital Signs Vital Sign Reading Time Taken Comments Blood Pressure 110/67 09/02/2024 11:55 AM SUPERVISING FLOORPERSON Pulse 96 09/02/2024 11:55 AM SUPERVISING FLOORPERSON Temperature 36.8 C (98.2 F) 03/09/2018 12:43 PM CDT Respiratory Rate 18 03/09/2018 12:4 3 PM CDT Oxygen Saturation 97% 09/02/2024 11: 55 AM SUPERVISING FLOORPERSON Inhaled Oxygen Concentration - - Weight 96.5 kg (212 lb 11.2 oz) 025 11:55 AM SUPERVISING FLOORPERSON Height 167.6 cm (5' 6 ) 09/02/2024 11:5 5 AM SUPERVISING FLOORPERSON Body Mass Index 34.33 09/02/2024 11:55 AM SUPERVISING FLOORPERSON Plan of Treatment Health Maintenance Due Date [...] quantitative Blood (06/04/2024 11:09 AM CDT) Pathologist [facility] HCV RNA result Not Detected [facility] Comment: The quantifiable range of this assay is 15 IU/mL to 100,000,000 IU/mL (1.18 log IU/mL to 8.00 log IU/mL). Testing was performed by the [employer] 6800 HCV Test ([employer] Testing performed at [facility] Current Interpretive Data was last revised on 2021 Testing performed by: [facility], [address], [place]., [address] Blood 06/04/2024 11:0 9 AM CDT 06/05/2024 11:14 AM CDT Rubi Beckett NP LAB MICROBIOLOGY - [facility] [place] [id number] [address] [place] [address] [facility] from Last 3 Months or Most Recently Relevant to Health Maintenance Insurance Advance Directives For more information, please contact: [phone] * Full Code (Latest Code Status on File) Date Activated Date Inactivated Comments 03/06/2018 9:34 PM 03/09/2018 9:00 PM Care Teams Paint Line Production Supervisor Relationship Specialty Start Date End Date Marcos Marcum MD [address] [place] [address] PCP - General Family Medicine 11/09/23
[2024-11-01 13:33] VITALS: BP 109/61; PULSE 94; RESP 18; TEMP 36.4; O2SAT 96
[2024-11-01] MEDS: HYDROmorphone HCL INJ (*CRX) 1 MG/ML SYR IV PUSH (13:34)
[2024-11-01 13:35] LABS: Basophils Percent Auto 0.3 % (0.2-1.2); Eosinophils Absolute Auto 0.2 K/mm3 (0-0.3); Eosinophils Percent Auto 2.3 % (0-4.4); Hematocrit 43.6 % (42.0-52.0); Hemoglobin 15.1 g/dL (14.0-18.0); Immature Granulocyte Absolute 0.03 K/mm3 (0.00-0.031); Immature Granulocyte Percent A 0.5 % (0-0.5); Lymphocytes Absolute Auto 2.42 K/mm3 (0.9-3.2); Lymphocytes Percent Auto 37.4 % (18.3-44.2); Mean Corpuscular HGB Conc 34.6 g/dl (32-36); Mean Corpuscular Hemoglobin 30.6 pg (26-34); Mean Corpuscular Volume 88.4 fl (80-100); Mean Platelet Volume 10.8 fl (7.4-10.4); Monocytes Absolute Auto 0.3 K/mm3 (0.1-0.6); Monocytes Percent Auto 5.3 % (2.6-8.5); Neutrophils Absolute Auto 3.5 K/mm3 (1.3-6.7); Neutrophils Percent Auto 54.2 % (45.5-73.1); Platelet Count Result 210 k/mm3 (150-375); Red Blood Count 4.93 M/mm3 (4.6-6.20); Red Cell Distribution Width 11.6 % (11.5-14.5); White Blood Count 6.5 K/mm3 (4.5-10.0)
[2024-11-01 13:45] LABS: Alanine Aminotransferase 43 U/L (6-50); Albumin Level 4.8 g/dL (3.5-5.1); Alkaline Phosphatase 48 U/L (38-126); Anion Gap 11 mmol/L (4-12); Aspartate Amino Transferase 37 U/L (17-59); Bilirubin,Total 1.1 mg/dL (0.2-1.3); Blood Urea Nitrogen 14 mg/dL (9-20); Calcium 9.8 mg/dL (8.4-10.2); Carbon Dioxide 25 mmol/L (22-30); Chloride 102 mmol/L (98-107); Estimated CRCL calculation 110 ml/min; Estimated Glomerular Filt Rate > 60; Glucose 107 mg/dL (65-110); Potassium 4.3 mmol/L (3.4-5.0); Sodium 138 mmol/L (137-145)
[2024-11-01 13:50] LABS: Prothrombin Time 13.3 Seconds (11.1-14.7)
[2024-11-01 13:52] LABS: Partial Thromboplastin Time 27.2 Seconds (22.3-36.8)
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
[2024-11-01 15:52] VITALS: BP 108/86; PULSE 95; RESP 16; O2SAT 94
[2024-11-01] MEDS: KETOROLAC 30 MG/ML VIAL (*BKC) IV PUSH (17:21)
[2024-11-01 18:40] VITALS: BP 113/82; PULSE 88; RESP 16; TEMP 36.6; O2SAT 98
== END 2024-11-01 18:47 | disposition home or self-care (01) ==
PROVIDERS: Emergency Provider Student in an Organized Health Care Education/Training Program; PCP Emergency Medicine
DX: R10.2 Pelvic and perineal pain (principal); E03.9 Hypothyroidism, unspecified; E78.5 Hyperlipidemia, unspecified; F41.9 Anxiety disorder, unspecified; N50.3 Cyst of epididymis; Z79.899 Other long term (current) drug therapy
CPT/HCPCS: 36415; 74177; 76870; 76882; 80053; 85025; 85610; 85730; 93976; 96374; 96375; 99284; J1171; J1885; Q9967